=== PATIENT | male | born 1960 | race Caucasian/White ===

== ENCOUNTER 2016-09-16 11:39 | Inpatient (IN) | payer SELFPAY ==
[2016-09-16] VITALS (16 sets, daily range): BP systolic 114–145; BP diastolic 59–89; PULSE 60–154; RESP 18–20; TEMP 98.5–98.6; O2SAT 97–100
[~2016-09-16] VITALS: Ht 182.9 cm; Wt 77.9 kg
[~2016-09-16 11:39] MED LIST: ECASA PO; METO25 PO
[2016-09-16] MEDS ORDERED: SODIUM CHLOR 0.9% 1000 ML INJ 1,000 ML IV ONE (11:45)
[2016-09-16] MEDS ORDERED: DILTIAZEM INJ 125 MG in SODIUM CHLORIDE 0.9% INJ 100 ML IV SCH ×2 (11:45→14:00)
[2016-09-16] MEDS ORDERED: SODIUM CHLORID 0.9% 500 ML INJ 500 ML IV ONE (11:45)
[2016-09-16] MEDS ORDERED: SODIUM CHLORIDE 0.9% FLUSH 10 ML FLUSH IVF PRN ×2 (11:45)
[2016-09-16] MEDS ORDERED: DILTIAZEM HCL 25 MG/5 ML VIAL IV PUSH ONE (11:45)
[2016-09-16] MEDS ORDERED: DILTIAZEM HCL 25 MG/5 ML VIAL ONE (11:46)
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
[2016-09-16 12:38] LABS: AUTOMATED NEUTROPHIL # 5.9 TH/MM3 (1.8-7.7); BASOPHIL # 0.1 TH/MM3 (0-0.2); BASOPHIL % 0.9 % (0.0-2.0); EOSINOPHIL # 0.1 TH/MM3 (0-0.4); EOSINOPHIL % 1.5 % (0.0-4.0); HEMATOCRIT 45.8 % (39.0-51.0); HEMO FLAGS DIFF FINAL; LYMPH % 26.1 % (9.0-44.0); LYMPHOCYTE # 2.3 TH/MM3 (1.0-4.8); MEAN CELL VOLUME 103.6 FL (80.0-100.0); MEAN CORPUSCULAR HEMOGLOBIN 35.1 PG (27.0-34.0); MEAN CORPUSCULAR HGB CONC 33.9 % (32.0-36.0); MONO % 5.3 % (0.0-8.0); NEUT % 66.2 % (16.0-70.0); PLATELET COUNT 284 TH/MM3 (150-450); RED BLOOD COUNT 4.42 MIL/MM3 (4.50-5.90); RED CELL DISTRIBUTION WIDTH 13.3 % (11.6-17.2); WHITE BLOOD COUNT 8.9 TH/MM3 (4.0-11.0)
[2016-09-16 12:41] LABS: APTT (PATIENT) 27.3 SEC (24.3-30.1); INTERNATIONAL NORMALIZED RATIO 0.9 RATIO; PROTHROMBIN TIME - PATIENT 10.2 SEC (9.8-11.6)
[2016-09-16 13:02] LABS: ALT (GPT) 30 U/L (12-78); ANION GAP 16 MEQ/L (5-15); AST (GOT) 33 U/L (15-37); BICARBONATE 20.8 MEQ/L (21.0-32.0); BLOOD UREA NITROGEN 10 MG/DL (7-18); CHLORIDE 109 MEQ/L (98-107); GLOMERULAR FILTRATION RATE 60 ML/MIN (>89); MAGNESIUM 2.1 MG/DL (1.5-2.5); POTASSIUM 3.8 MEQ/L (3.5-5.1); SODIUM (NA) 146 MEQ/L (136-145)
[2016-09-16 13:07] LABS: ALKALINE PHOSPHATASE 48 U/L (45-117); TOTAL BILIRUBIN ADULT 0.5 MG/DL (0.2-1.0)
[2016-09-16 13:08] LABS: CREATINE KINASE 79 U/L (39-308)
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
[2016-09-16] MEDS ORDERED: SODIUM CHLORIDE 0.9% FLUSH 10 ML FLUSH IV FLUSH PRN ×3 (14:00)
[2016-09-16] MEDS ORDERED: NALOXONE HCL 0.4 MG/ML AMP IV PRN (14:00)
[2016-09-16] MEDS ORDERED: ACETAMINOPHEN 325 MG TAB PO PRN (14:00)
[2016-09-16] MEDS ORDERED: BISACODYL 10 MG SUPP RECTAL PRN (14:00)
[2016-09-16] MEDS: ASPIRIN 325 MG TAB PO SCH (14:00)
[2016-09-16] MEDS ORDERED: LORazepam 1 MG TAB PO PRN (14:00)
[2016-09-16] MEDS ORDERED: FLUMAZENIL 0.5 MG/5 ML VIAL IV PUSH PRN (14:00)
[2016-09-16] MEDS ORDERED: LORazepam 2 MG TAB PO PRN (14:00)
[2016-09-16] MEDS ORDERED: ONDANSETRON HCL 4 MG/2 ML VIAL IV PRN (14:00)
[2016-09-16] MEDS ORDERED: SENNOSIDES 8.6 MG TAB PO PRN (14:00)
[2016-09-16] MEDS ORDERED: ZOLPIDEM TARTRATE 5 MG TAB PO PRN (14:00)
[2016-09-16] MEDS: SODIUM CHLORIDE 0.9% FLUSH 10 ML FLUSH IV FLUSH SCH ×2 (14:00→21:15)
[2016-09-16] MEDS ORDERED: LACTULOSE SYRUP 20 GM/30 ML CUP PO PRN (14:00)
[2016-09-16] MEDS ORDERED: PROCHLORPERAZINE 25 MG SUPP RECTAL PRN (14:00)
[2016-09-16] MEDS ORDERED: MAGNESIUM HYDROXIDE SUSP 30 ML CUP PO PRN (14:00)
[2016-09-16] MEDS ORDERED: cloNIDine HCL 0.1 MG TAB PO PRN (14:00)
[2016-09-16] MEDS ORDERED: LORazepam 2 MG/ML VIAL IV PUSH PRN ×4 (14:00)
[2016-09-16] MEDS: THIAMINE HCL 100 MG TAB PO SCH (14:33)
[2016-09-16] MEDS: ENOXAPARIN SODIUM 80 MG/0.8 ML SYRINGE SQ SCH (14:34)
[2016-09-16] MEDS: FOLIC ACID 1 MG TAB PO SCH (14:34)
[2016-09-16] MEDS: MULTIVITAMINS/MINERALS THERAPEUTIC TAB PO SCH (15:13)
[2016-09-16] MEDS: PANTOPRAZOLE SOD 40 MG DELAYED RELEASE TAB PO SCH (15:14)
[2016-09-16] MEDS: NICOTINE 14 MG/24 HR PATCH T-DERMAL SCH (15:14)
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
--- NOTE | 2016-09-16 16:25 | RADRPT ---
EXAM DATE/TIME: 09/16/2016 16:15 [facility] COMPARISON: No previous studies available for comparison. INDICATIONS : Syncope RADIATION DOSE: 36.43 CTDIvol (mGy) MEDICAL HISTORY : Cardiovascular disease. Hepatitis. ETOH.TBI SURGICAL HISTORY : None. ENCOUNTER: Initial ACUITY: 1 day PAIN SCALE: 0/10 LOCATION: cranial TECHNIQUE: Multiple contiguous axial images were obtained of the head. Using automated exposure control and adj ustment of the mA and/or kV according to patient size, radiation dose was kept as low as reasonably a chievable to obtain optimal diagnostic quality images. DICOM format image data is available electro nically for review and comparison. FINDINGS: CEREBRUM: The ventricles are normal for age. No evidence of midline shift, mass lesion, hemorrhage or acute in farction. No extra-axial fluid collections are seen. POSTERIOR FOSSA: The cerebellum and brainstem are intact. The 4th ventricle is midline. The cerebellopontine angle i s unremarkable. EXTRACRANIAL: The visualized portion of the orbits is intact. SKULL: The calvaria is intact. No evidence of skull fracture. CONCLUSION: 1. No acute findings. No significant change from January 2015. Demarcus Britt MD on September 16, 2016 at 16:22 Board Certified Radiologist. This report was verified electronically.
--- NOTE | 2016-09-16 17:21 | RADRPT ---
EXAM DATE/TIME: 09/16/2016 16:44 [facility] COMPARISON: No previous studies available for comparison. INDICATIONS : Syncope. MEDICAL HISTORY : A-fib. Syncope. Palpitations. Migraine. SURGICAL HISTORY : Brain surgery 1980. ENCOUNTER: Initial ACUITY: 1 day PAIN SCORE: 0/10 LOCATION: Bilateral neck PEAK SYSTOLIC VELOCITIES (cm/sec): ICA/CCA RATIO: Right: 1.1 Left: 0.9 ICA: Right: 89 Left: 85 CCA: Right: 83 Left: 93 ECA: Right: 120 Left: 99 VERTEBRAL: Right: 48 antegrade Left: 56 antegrade Elevated flow velocities and ICA/CCA ratios have been found to correlate with increased degrees of vessel stenosis, calculated as percentage of diameter relative to a normal segment of distal ICA/CCA FINDINGS: RIGHT CAROTID: No significant stenosis is visualized. The waveforms are within normal limits. LEFT CAROTID: No significant stenosis is visualized. The waveforms are within normal limits. VERTEBRAL ARTERIES: Antegrade flow is seen in both vertebral arteries. MISCELLANEOUS: None. CONCLUSION: 1. Mild to moderate visible plaque formation predominantly around the carotid bifurcations. No hemody namically significant stenosis identified. Vertebral artery flow is antegrade bilaterally. Demarcus Britt MD on September 16, 2016 at 17:18 Board Certified Radiologist. This report was verified electronically.
--- NOTE | 2016-09-16 17:53 | EKG ---
Date Performed: 09/16/2016 Time Performed: 11:44:43 PTAGE: 56 years EKG: ATRIAL FLUTTER/TACHYCARDIA WITH RAPID VENTRICULAR RESPONSE MARKED LEFT AXIS DEVIATION SEPTA L MYOCARDIAL INFARCTION ST DEPRESSION, CONSIDER SUBENDOCARDIAL INJURY Compared to previous tracing, t here is now an unusual atrial flutter with 2:1 heart block and increased heart rate. ABNORMAL ECG PREVIOUS TRACING : 11/12/2015 06.24 DOCTOR: Silvio Parra Interpretating Date/Time 09/16/2016 17:52:08
[2016-09-16] MEDS ORDERED: SODIUM CHLORIDE 0.9% FLUSH 10 ML FLUSH IV FLUSH SCH (21:00)
[2016-09-16] MEDS: DOCUSATE SODIUM 50 MG/SENNA 8.6 MG TAB PO SCH (21:00)
[2016-09-16] MEDS: METOPROLOL TARTRATE 50 MG TAB PO SCH (21:15)
[2016-09-17] VITALS (13 sets, daily range): BP systolic 121–152; BP diastolic 67–77; PULSE 43–75; RESP 18–20; TEMP 97.7–98.5; O2SAT 96–99
[2016-09-17 02:03] LABS: AUTOMATED NEUTROPHIL # 4.4 TH/MM3 (1.8-7.7); BASOPHIL # 0.1 TH/MM3 (0-0.2); BASOPHIL % 0.7 % (0.0-2.0); EOSINOPHIL # 0.3 TH/MM3 (0-0.4); EOSINOPHIL % 3.5 % (0.0-4.0); HEMATOCRIT 42.8 % (39.0-51.0); HEMO FLAGS DIFF FINAL; LYMPH % 30.7 % (9.0-44.0); LYMPHOCYTE # 2.4 TH/MM3 (1.0-4.8); MEAN CELL VOLUME 103.7 FL (80.0-100.0); MEAN CORPUSCULAR HEMOGLOBIN 34.6 PG (27.0-34.0); MEAN CORPUSCULAR HGB CONC 33.4 % (32.0-36.0); MONO % 8.1 % (0.0-8.0); PLATELET COUNT 227 TH/MM3 (150-450); RED BLOOD COUNT 4.13 MIL/MM3 (4.50-5.90); RED CELL DISTRIBUTION WIDTH 13.5 % (11.6-17.2); WHITE BLOOD COUNT 7.7 TH/MM3 (4.0-11.0)
[2016-09-17 02:17] LABS: ANION GAP 6 MEQ/L (5-15); AST (GOT) 23 U/L (15-37); BICARBONATE 28.6 MEQ/L (21.0-32.0); BLOOD UREA NITROGEN 14 MG/DL (7-18); CHLORIDE 107 MEQ/L (98-107); GLOMERULAR FILTRATION RATE 68 ML/MIN (>89); MAGNESIUM 2.4 MG/DL (1.5-2.5); SODIUM (NA) 142 MEQ/L (136-145)
[2016-09-17 02:25] LABS: ALKALINE PHOSPHATASE 47 U/L (45-117); ALT (GPT) 25 U/L (12-78); FREE T4 0.79 NG/DL (0.76-1.46); TOTAL BILIRUBIN ADULT 0.5 MG/DL (0.2-1.0)
[2016-09-17 02:33] LABS: CREATINE KINASE 71 U/L (39-308)
[2016-09-17] MEDS: ENOXAPARIN SODIUM 80 MG/0.8 ML SYRINGE SQ SCH ×2 (05:02→13:42)
[2016-09-17] MEDS: PANTOPRAZOLE SOD 40 MG DELAYED RELEASE TAB PO SCH (08:54)
[2016-09-17] MEDS: MULTIVITAMINS/MINERALS THERAPEUTIC TAB PO SCH (08:54)
[2016-09-17] MEDS: REMOVE OLD PATCH T-DERMAL SCH (08:56)
[2016-09-17] MEDS: NICOTINE 14 MG/24 HR PATCH T-DERMAL SCH (08:56)
[2016-09-17] MEDS: ASPIRIN 325 MG TAB PO SCH (08:57)
[2016-09-17] MEDS: FOLIC ACID 1 MG TAB PO SCH (08:57)
[2016-09-17] MEDS: SODIUM CHLORIDE 0.9% FLUSH 10 ML FLUSH IV FLUSH SCH ×2 (08:57→20:54)
[2016-09-17] MEDS: DOCUSATE SODIUM 50 MG/SENNA 8.6 MG TAB PO SCH ×2 (08:58→20:53)
[2016-09-17] MEDS: METOPROLOL TARTRATE 50 MG TAB PO SCH ×2 (09:00→20:54)
[2016-09-17] MEDS: THIAMINE HCL 100 MG TAB PO SCH (09:07)
[2016-09-17] MEDS ORDERED: PNEUMOCOCCAL POLYVALENT INJ 25 MCG/0.5 ML SYR IM ONE (10:00)
[2016-09-17] MEDS ORDERED: INFLUENZA VIRUS VACCINE (QUADRIVALENT) 0.5 ML SYR IM ONE (10:00)
--- NOTE | 2016-09-17 10:22 | PD.CARD.PN ---
Subjective Subjective Remarks no complaints, currently sinus sussy Objective Medications Administered Medications Medications (Trade) Dose Ordered Sig/Kee Route PRN Reason Start Time Stop Time Status Last Admin Dose Admin Metoprolol Tartrate (Lopressor) 50 mg BID PO 09/16/16 21:00 09/16/16 21:15 Enoxaparin Sodium (Lovenox Inj) 80 mg Q12H SQ 09/16/16 15:00 09/17/16 05:02 Aspirin (Aspirin) 325 mg DAILY PO 09/16/16 14:00 09/17/16 08:57 Folic Acid (Folate) 1 mg DAILY PO 09/16/16 14:00 09/21/16 13:59 09/17/16 08:57 Thiamine HCl (Vitamin B1) 100 mg DAILY PO 09/16/16 15:00 09/17/16 09:07 Multivitamins/ Minerals Therapeutic (Theragran M Tab) 1 tab DAILY PO 09/16/16 14:00 09/21/16 13:59 09/17/16 08:54 Pantoprazole Sodium (Protonix) 40 mg DAILY PO 09/16/16 15:00 09/17/16 08:54 Sodium Chloride (NS Flush) 2 ml BID IV FLUSH 09/16/16 14:00 09/17/16 08:57 Nicotine (Habitrol 14 Mg Patch.24 Hr) 1 patch DAILY T-DERMAL 09/16/16 15:00 09/17/16 08:56 Vital Signs / I&O Vital Signs Date Time Temp Pulse Resp B/P Pulse Ox O2 Delivery O2 Flow Rate FiO2 09/17/16 08:00 98.5 43 20 148/75 98 09/17/16 04:00 98.4 46 20 152/74 99 09/17/16 00:00 97.9 49 18 132/67 96 09/16/16 21:00 60 09/16/16 21:00 60 09/16/16 18:45 98.5 64 20 140/71 99 09/16/16 18:00 74 09/16/16 18:00 74 09/16/16 16:26 61 18 145/70 97 Nasal Cannula 2 09/16/16 16:15 61 09/16/16 16:00 75 18 135/74 97 Nasal Cannula 2 09/16/16 15:20 84 18 125/79 97 Nasal Cannula 2 09/16/16 14:36 100 Nasal Cannula 2.00 09/16/16 13:32 89 18 125/79 97 Nasal Cannula 2 09/16/16 12:34 98 18 114/77 97 Nasal Cannula 2 09/16/16 12:05 99 18 116/59 97 Nasal Cannula 2 09/16/16 12:00 99 18 120/81 97 Nasal Cannula 2 09/16/16 11:59 99 18 97 Nasal Cannula 2 09/16/16 11:56 98.6 104 18 135/89 97 09/16/16 11:53 143 20 135/89 98 Nasal Cannula 2 09/16/16 11:53 141 20 135/89 97 Nasal Cannula 2 09/16/16 11:48 98 2 09/16/16 11:48 98 Nasal Cannula 2 09/16/16 11:45 154 I/O 09/16/16 09/16/16 09/16/16 09/17/16 09/17/16 09/17/16 07:00 15:00 23:00 07:00 15:00 23:00 Intake Total 480 ml 360 ml Output Total 600 ml Balance -600 ml 480 ml 360 ml Intake Oral 480 ml 360 ml Output Urine Total 600 ml # Voids 1 3 4 # Bowel Movements 1 0 Physical Exam GENERAL: This is a well-nourished, well-developed patient, in no apparent distress. CARDIOVASCULAR: Regular rate and rhythm without murmurs, gallops, or rubs. RESPIRATORY: Clear to auscultation. Breath sounds equal bilaterally. No wheezes , rales, or rhonchi. GASTROINTESTINAL: Abdomen soft, non-tender, nondistended. Normal active bowel sounds MUSCULOSKELETAL: Extremities without clubbing, cyanosis, or edema. NEURO: Alert & Oriented x4 to person, place, time, situation. Moves all ext x4 Laboratory Laboratory Tests Test 09/16/16 09/16/16 09/17/16 12:01 20:14 01:43 White Blood Count 8.9 TH/MM3 7.7 TH/MM3 Red Blood Count 4.42 MIL/MM3 4.13 MIL/MM3 Hemoglobin 15.5 GM/DL 14.3 GM/DL Hematocrit 45.8 % 42.8 % Mean Corpuscular Volume 103.6 FL 103.7 FL Mean Corpuscular Hemoglobin 35.1 PG 34.6 PG Mean Corpuscular Hemoglobin 33.9 % 33.4 % Concent Red Cell Distribution Width 13.3 % 13.5 % Platelet Count 284 TH/MM3 227 TH/MM3 Mean Platelet Volume 7.4 FL 7.3 FL Neutrophils (%) (Auto) 66.2 % 57.0 % Lymphocytes (%) (Auto) 26.1 % 30.7 % Monocytes (%) (Auto) 5.3 % 8.1 % Eosinophils (%) (Auto) 1.5 % 3.5 % Basophils (%) (Auto) 0.9 % 0.7 % Neutrophils # (Auto) 5.9 TH/MM3 4.4 TH/MM3 Lymphocytes # (Auto) 2.3 TH/MM3 2.4 TH/MM3 Monocytes # (Auto) 0.5 TH/MM3 0.6 TH/MM3 Eosinophils # (Auto) 0.1 TH/MM3 0.3 TH/MM3 Basophils # (Auto) 0.1 TH/MM3 0.1 TH/MM3 CBC Comment DIFF FINAL DIFF FINAL Differential Comment Prothrombin Time 10.2 SEC Prothromb Time International 0.9 RATIO Ratio Activated Partial 27.3 SEC Thromboplast Time Sodium Level 146 MEQ/L 142 MEQ/L Potassium Level 3.8 MEQ/L 4.0 MEQ/L Chloride Level 109 MEQ/L 107 MEQ/L Carbon Dioxide Level 20.8 MEQ/L 28.6 MEQ/L Anion Gap 16 MEQ/L 6 MEQ/L Blood Urea Nitrogen 10 MG/DL 14 MG/DL Creatinine 1.24 MG/DL 1.11 MG/DL Estimat Glomerular Filtration 60 ML/MIN 68 ML/MIN Rate Random Glucose 71 MG/DL 85 MG/DL Calcium Level 8.4 MG/DL 8.1 MG/DL Magnesium Level 2.1 MG/DL 2.4 MG/DL Total Bilirubin 0.5 MG/DL 0.5 MG/DL Aspartate Amino Transf 33 U/L 23 U/L (AST/SGOT) Alanine Aminotransferase 30 U/L 25 U/L (ALT/SGPT) Alkaline Phosphatase 48 U/L 47 U/L Total Creatine Kinase 79 U/L 71 U/L 71 U/L Troponin I LESS THAN 0.02 0.39 NG/ML 0.26 NG/ML NG/ML Total Protein 6.8 GM/DL 6.2 GM/DL Albumin 3.4 GM/DL 2.9 GM/DL Lipase 324 U/L Ethyl Alcohol Level 95 MG/DL Phosphorus Level 2.5 MG/DL Free Thyroxine 0.79 NG/DL Thyroid Stimulating Hormone 1.480 uIU/ML 3rd Gen Imaging Last Impressions Chest X-Ray 09/16/16 1144 Signed Impressions: Service Date/Time: Friday, September 16, 2016 12:03 - CONCLUSION: No acute cardiopulmonary abnormality is identified. Juan Manuel Pinto MD Head CT 09/16/16 0000 Signed Impressions: Service Date/Time: Friday, September 16, 2016 16:15 - CONCLUSION: 1. No acute findings. No significant change from January 2015. Demarcus Britt MD Carotid Artery Ultrasound 09/16/16 0000 Signed Impressions: Service Date/Time: Friday, September 16, 2016 16:44 - CONCLUSION: 1. Mild to moderate visible plaque formation predominantly around the carotid bifurcations. No hemodynamically significant stenosis identified. Vertebral artery flow is antegrade bilaterally. Demarcus Britt MD Assessment and Plan Problem List: (1) Atrial fibrillation with RVR Assessment and Plan: currently on metoprolol/lovenox; 1:1 conduction of aflutter, asked dr. cordova to eval (2) Alcohol abuse with intoxication (3) Cardiomyopathy Assessment and Plan: likely alcoholic/tachycardic; will get a nuc stress Adam Hernandez MD Sep 17, 2016 10:22
--- NOTE | 2016-09-17 12:04 | HHI.PR ---
Subjective Remarks Pt denies any CP/SOB however does admits to palpitations at times. States that his gate is unsteady at times but that is normal for him. Appetite is good. Objective Vitals Vital Signs Date Time Temp Pulse Resp B/P Pulse Ox O2 Delivery O2 Flow Rate FiO2 09/17/16 08:09 47 09/17/16 08:00 98.5 43 20 148/75 98 09/17/16 04:00 98.4 46 20 152/74 99 09/17/16 00:00 97.9 49 18 132/67 96 09/16/16 21:00 60 09/16/16 21:00 60 09/16/16 18:45 98.5 64 20 140/71 99 09/16/16 18:00 74 09/16/16 18:00 74 09/16/16 16:26 61 18 145/70 97 Nasal Cannula 2 09/16/16 16:15 61 09/16/16 16:00 75 18 135/74 97 Nasal Cannula 2 09/16/16 15:20 84 18 125/79 97 Nasal Cannula 2 09/16/16 14:36 100 Nasal Cannula 2.00 09/16/16 13:32 89 18 125/79 97 Nasal Cannula 2 09/16/16 12:34 98 18 114/77 97 Nasal Cannula 2 09/16/16 12:05 99 18 116/59 97 Nasal Cannula 2 09/16/16 12:00 99 18 120/81 97 Nasal Cannula 2 09/16/16 11:59 99 18 97 Nasal Cannula 2 09/16/16 11:56 98.6 104 18 135/89 97 I/O 09/16/16 09/16/16 09/16/16 09/17/16 09/17/16 09/17/16 07:00 15:00 23:00 07:00 15:00 23:00 Intake Total 480 ml 360 ml Output Total 600 ml Balance -600 ml 480 ml 360 ml Intake Oral 480 ml 360 ml Output Urine Total 600 ml # Voids 1 3 4 # Bowel Movements 1 0 Result Diagram: 09/17/16 0143 09/17/16 0143 Imaging Last Impressions Chest X-Ray 09/16/16 1144 Signed Impressions: Service Date/Time: Friday, September 16, 2016 12:03 - CONCLUSION: No acute cardiopulmonary abnormality is identified. Juan Manuel Pinto MD Head CT 09/16/16 0000 Signed Impressions: Service Date/Time: Friday, September 16, 2016 16:15 - CONCLUSION: 1. No acute findings. No significant change from January 2015. Demarcus Britt MD Carotid Artery Ultrasound 09/16/16 0000 Signed Impressions: Service Date/Time: Friday, September 16, 2016 16:44 - CONCLUSION: 1. Mild to moderate visible plaque formation predominantly around the carotid bifurcations. No hemodynamically significant stenosis identified. Vertebral artery flow is antegrade bilaterally. Demarcus Britt MD Objective Remarks GENERAL: This is a well-nourished, well-developed male patient CARDIOVASCULAR: apperas Regular rate and rhythm. No murmur appreciated. RESPIRATORY: Clear to auscultation. Breath sounds equal bilaterally. No wheezes GASTROINTESTINAL: Abdomen soft, non-tender, nondistended. No guarding. MUSCULOSKELETAL: Extremities without edema. NEUROLOGICAL: Awake and alert. Cranial nerves II through XII intact. Motor and sensory grossly within normal limits. Normal speech. Insight and judgment is good, mood and behavior appropriate A/P Problem List: (1) Atrial fibrillation with RVR ICD Code: I48.91 Status: Acute (2) Alcohol abuse with intoxication ICD Code: F10.129 Status: Acute (3) GERD (gastroesophageal reflux disease) ICD Code: K21.9 Status: Acute (4) Tobacco abuse ICD Code: Z72.0 Status: Acute (5) Head injury ICD Code: S09.90XA Status: Acute (6) Syncopal episodes ICD Code: R55 Status: Acute Assessment and Plan (1) Atrial fibrillation with RVR/cardiomyopathy. off Cardizem drip and now on metoprolol 50mg po BID. dose held this morning due to bradycardia. Cardiology following. Nuclear stress test has been ordered, 2D echo ordered. Per cards notes, Dr. Hernandez will discuss case w Dr. Lopes. Pt found to have 1:1 conduction of aflutter (2) Alcohol abuse with intoxication Multivitamin thiamine and folic acid. pt has been counseled to quit. on CIWA withdrawal protocol (3) GERD (gastroesophageal reflux disease) PPI protonix daily (4) Tobacco abuse NicoDerm patch for smoking cessation recommended and encouraged (5) Head injury History of prior head injury in 1980 with brain surgery. Pt tells me that he gets unsteady w his gate. Will have PT evaluate the patient. (6) Syncopal episodes carotid Doppler shows no hemodynamically significant stenosis. ECHO pending. CT brain showed no acute findings Pt currently on therapeutic lovenox. Awaiting final recs from cards Discharge Planning ECHO pending nuclear stress test has been ordered ? consult to Dr. Lopes. Defer to Dr. Hernandez. PT Rosina Ackerman MD Sep 17, 2016 12:04
--- NOTE | 2016-09-17 12:19 | ECHRPT ---
Indication: a fib/flutter CONCLUSIONS The left ventricular systolic function is severely reduced with an estimated ejection fraction in th e range of 30-35%. Moderately dilated left ventricle. Mild concentric left ventricular hypertrophy. The left atrial size is mildly dilated. The right atrial size is fcgo-jo-wdxhlbyuuh dilated. Mild mitral valve regurgitation. Aortic valve sclerosis is present. Diffuse calcification of the aortic valve. No aortic valve regurgitation. No aortic valve stenosis. There is mild tricuspid valve regurgitation. The estimated pulmonary arterial pressure is 18 mmHg. The pulmonary valve is not well visualized. BP: / HR: Rhythm: MEASUREMENTS (Male / Female) Normal Values Technical Quality:Fair 2D ECHO LV Diastolic Diameter PLAX 5.1 cm 4.2 - 5.9 / 3.9 - 5.3 cm LV Systolic Diameter PLAX 4.4 cm IVS Diastolic Thickness 1.2 cm 0.6 - 1.0 / 0.6 - 0.9 cm LVPW Diastolic Thickness 1.1 cm 0.6 - 1.0 / 0.6 - 0.9 cm LV Relative Wall Thickness 0.5 RV Internal Dim ED PLAX 3.7 cm M-MODE Aortic Root Diameter MM 3.5 cm LA Systolic Diameter MM 4.4 cm LA Ao Ratio MM 1.3 AV Cusp Separation MM 2.4 cm DOPPLER Mitral E Point Velocity 60.2 cm/s Mitral A Point Velocity 69.6 cm/s Mitral E to A Ratio 0.9 LV E' Lateral Velocity 8.4 cm/s Mitral E to LV E' Lateral Ratio 7.2 LV E' Septal Velocity 8.7 cm/s Mitral E to LV E' Septal Ratio 6.9 TR Peak Velocity 213.0 cm/s TR Peak Gradient 18.1 mmHg FINDINGS LEFT VENTRICLE The left ventricular systolic function is severely reduced with an estimated ejection fraction in th e range of 30-35%. Moderately dilated left ventricle. Mild concentric left ventricular hypertrophy. RIGHT VENTRICLE Normal right ventricular size and systolic function. LEFT ATRIUM The left atrial size is mildly dilated. RIGHT ATRIUM The right atrial size is oqop-to-cwytrzbamh dilated. ATRIAL SEPTUM Normal atrial septal thickness without atrial level shunting by limited color doppler interrogation. AORTA The aortic root and proximal ascending aorta are normal in size on limited imaging. MITRAL VALVE Structurally normal mitral valve. Mild mitral valve regurgitation. AORTIC VALVE Trileaflet aortic valve. Aortic valve sclerosis is present. Diffuse calcification of the aortic valve. No aortic valve regurgitation. No aortic valve stenosis. TRICUSPID VALVE Structurally normal tricuspid valve. There is mild tricuspid valve regurgitation. The estimated pulmonary arterial pressure is 18 mmHg. PULMONARY VALVE The pulmonary valve is not well visualized. VESSELS The inferior vena cava is normal in size. PERICARDIUM No pericardial effusion. Isauro Singh MD, FACC (Electronically Signed) Final Date:17 September 2016 12:19
--- NOTE | 2016-09-17 16:09 | EKG ---
Date Performed: 09/16/2016 Time Performed: 12:19:02 PTAGE: 56 years EKG: ATRIAL FLUTTER/TACHYCARDIA CONSIDER ANTEROSEPTAL MYOCARDIAL INFARCTION, AGE INDETERMINATE A BNORMAL ECG PREVIOUS TRACING : 09/16/2016 11.44 DOCTOR: Kvng Frost Interpretating Date/Time 09/17/2016 16:08:06
[2016-09-17 16:11] LABS: HEMOGLOBIN A1a 1.4 %; HEMOGLOBIN A1b 0.7 %; HEMOGLOBIN Ao 85.1 %; HEMOGLOBIN F 1.3 %; HEMOGLOBIN LA1C 2.1 %; HEMOGLOBIN P3 3.5 %
[2016-09-18] VITALS (7 sets, daily range): BP systolic 106–133; BP diastolic 59–79; PULSE 45–97; RESP 20; TEMP 97.3–98.7; O2SAT 50–100
[2016-09-18] MEDS: ENOXAPARIN SODIUM 80 MG/0.8 ML SYRINGE SQ SCH ×2 (03:32→14:11)
[2016-09-18] MEDS ORDERED: REGADENOSON INJ 0.4 MG/5 ML SYR ONE (08:58)
[2016-09-18] MEDS: REMOVE OLD PATCH T-DERMAL SCH (09:00)
[2016-09-18] MEDS: PANTOPRAZOLE SOD 40 MG DELAYED RELEASE TAB PO SCH (10:25)
[2016-09-18] MEDS: DOCUSATE SODIUM 50 MG/SENNA 8.6 MG TAB PO SCH ×2 (10:25→21:00)
[2016-09-18] MEDS: ASPIRIN 325 MG TAB PO SCH (10:25)
[2016-09-18] MEDS: MULTIVITAMINS/MINERALS THERAPEUTIC TAB PO SCH (10:26)
[2016-09-18] MEDS: SODIUM CHLORIDE 0.9% FLUSH 10 ML FLUSH IV FLUSH SCH ×2 (10:26→21:00)
[2016-09-18] MEDS: FOLIC ACID 1 MG TAB PO SCH (10:26)
[2016-09-18] MEDS: THIAMINE HCL 100 MG TAB PO SCH (10:26)
[2016-09-18] MEDS: METOPROLOL TARTRATE 50 MG TAB PO SCH ×2 (10:26→21:45)
[2016-09-18] MEDS: NICOTINE 14 MG/24 HR PATCH T-DERMAL SCH (10:27)
--- NOTE | 2016-09-18 10:36 | RADRPT ---
EXAM DATE/TIME: 09/17/2016 14:46 [facility] COMPARISON: No previous studies available for comparison. INDICATIONS : Mid chest pain for one day with shortness of breath. Atrial fibrillation. DOSE: 32.8 mCi Tc99m Myoview at stress. 30 mCi Tc99m Myoview at rest. 0.4 mg Lexiscan STRESS SYMPTOMS: Dyspnea. EJECTION FRACTION: 37% MEDICAL HISTORY : Cardiomyopathy. SURGICAL HISTORY : None. ENCOUNTER: Initial ACUITY: 1 day PAIN SCALE: 2/10 LOCATION: Midsternal chest TECHNIQUE: The patient underwent pharmacologic stress with infusion of prescribed dose. Continuous ECG tracing was monitored during stress. Gated SPECT imaging was performed after stress and conventional SPECT i maging was performed at rest. The examination was performed on a SPECT/CT scanner, both attenuation and non-corrected datasets were reviewed. FINDINGS: DISTRIBUTION: The maximum perfused segment at stress is in the anterior wall. PERFUSION STUDY: The pattern of perfusion at stress is within normal limits. GATED STUDY: Moderate left ventricular chamber dilatation with global mild hypokinesis CONCLUSION: Moderate LV dysfunction. No evidence of ischemia RISK CATEGORY: Intermediate (1-3% Annual Mortality Rate) Juan Manuel Washington MD on September 18, 2016 at 10:32 Board Certified Radiologist. This report was verified electronically.
--- NOTE | 2016-09-18 23:24 | HHI.PR ---
Subjective Remarks Patient seen this morning around 11 AM. Says he feels well. Denies any chest pain. Objective Vital Signs Date Time Temp Pulse Resp B/P Pulse Ox O2 Delivery O2 Flow Rate FiO2 09/18/16 20:18 Room Air 09/18/16 20:00 98.7 70 20 106/59 100 09/18/16 16:00 97.8 68 20 133/66 98 09/18/16 16:00 Room Air 09/18/16 13:03 97 21 09/18/16 12:00 97.3 97 20 130/73 50 09/18/16 12:00 Room Air 09/18/16 08:12 53 09/18/16 08:00 Room Air 09/18/16 08:00 97.9 45 20 132/79 98 I/O 09/17/16 09/17/16 09/17/16 09/18/16 09/18/16 09/18/16 06:59 14:59 22:59 06:59 14:59 22:59 Intake Total 360 ml 482 ml 720 ml 0 ml 604 ml Output Total 3 ml 0 ml 600 ml Balance 360 ml 479 ml 720 ml 0 ml 4 ml Intake Oral 360 ml 480 ml 720 ml 0 ml 600 ml IV Total 2 ml 4 ml Output Urine Total 3 ml 0 ml 600 ml # Voids 4 1 2 # Bowel Movements 0 1 0 1 Result Diagram: 09/17/1614209/17/16142 Objective Remarks GENERAL: patient sitting up in bed. Appears comfortable. SKIN: Warm and dry. HEAD: Normocephalic. EYES: No scleral icterus. No injection or drainage. NECK: Supple, trachea midline. No JVD. CARDIOVASCULAR: Regular rate and rhythm without murmurs, gallops, or rubs. RESPIRATORY: Breath sounds equal bilaterally. No accessory muscle use. GASTROINTESTINAL: Abdomen soft, non-tender, nondistended. MUSCULOSKELETAL: No cyanosis, or edema. BACK: Nontender without obvious deformity. No CVA tenderness. A/P Assessment and Plan 09/18/16 Intermediate myocardial perfusion scan. Evaluation by electrophysiology pending. Appreciate assistance. //Atrial fibrillation with RVR/cardiomyopathy. off Cardizem drip and now on metoprolol 50mg po BID. - Cardiology following. -Echocardiogram ejection fraction 30-35%. -Nuclear stress intermediate risk -Pending evaluation by Dr. Lopes. //Alcohol abuse with intoxication Multivitamin thiamine and folic acid. pt has been counseled to quit. -cont on CIWA withdrawal protocol //GERD (gastroesophageal reflux disease) -cont PPI protonix daily //Tobacco abuse -cont NicoDerm patch for smoking cessation recommended and encouraged //Head injury History of prior head injury in 1980 with brain surgery. Pt tells me that he gets unsteady w his gate. -PT ff //Syncopal episodes carotid Doppler shows no hemodynamically significant stenosis. ECHO ef 30-35%. CT brain showed no acute findings //Prophy: Pt currently on therapeutic lovenox. Awaiting final recs from cards Discharge Planning When cleared by cardiology. Brandon Mg MD Sep 18, 2016 23:23
[2016-09-19] VITALS (10 sets, daily range): BP systolic 94–117; BP diastolic 50–62; PULSE 45–98; RESP 18–20; TEMP 98.1–99.1; O2SAT 95–99
[2016-09-19] MEDS: ENOXAPARIN SODIUM 80 MG/0.8 ML SYRINGE SQ SCH ×2 (04:44→15:33)
[2016-09-19] MEDS: FOLIC ACID 1 MG TAB PO SCH (09:52)
[2016-09-19] MEDS: MULTIVITAMINS/MINERALS THERAPEUTIC TAB PO SCH (09:52)
[2016-09-19] MEDS: PANTOPRAZOLE SOD 40 MG DELAYED RELEASE TAB PO SCH (09:52)
[2016-09-19] MEDS: ASPIRIN 325 MG TAB PO SCH (09:52)
[2016-09-19] MEDS: THIAMINE HCL 100 MG TAB PO SCH (09:53)
[2016-09-19] MEDS: NICOTINE 14 MG/24 HR PATCH T-DERMAL SCH (09:53)
[2016-09-19] MEDS: METOPROLOL TARTRATE 50 MG TAB PO SCH ×2 (09:53→20:18)
[2016-09-19] MEDS: DOCUSATE SODIUM 50 MG/SENNA 8.6 MG TAB PO SCH ×2 (09:53→20:18)
[2016-09-19] MEDS: SODIUM CHLORIDE 0.9% FLUSH 10 ML FLUSH IV FLUSH SCH ×2 (09:56→20:14)
--- NOTE | 2016-09-19 20:43 | HHI.PR ---
Subjective Remarks Patient seen this morning. Says he occasionally gets palpitations, however denies any chest pain. Discussed with nurse. Objective Vital Signs Date Time Temp Pulse Resp B/P Pulse Ox O2 Delivery O2 Flow Rate FiO2 09/19/16 20:24 96 21 09/19/16 20:19 Room Air 09/19/16 16:00 98.7 98 18 111/57 98 09/19/16 12:00 98.4 45 18 110/54 98 09/19/16 11:46 99 Nasal Cannula 2.00 09/19/16 08:00 98.1 61 18 94/52 95 09/19/16 08:00 62 09/19/16 08:00 96 Room Air 21 09/19/16 08:00 63 09/19/16 06:00 98.4 70 20 108/56 96 09/19/16 00:00 98.8 71 20 103/50 97 I/O 09/18/16 09/18/16 09/18/16 09/19/16 09/19/16 09/19/16 07:00 15:00 23:00 07:00 15:00 23:00 Intake Total 0 ml 604 ml 240 ml 720 ml 240 ml Output Total 600 ml 0 ml 900 ml Balance 0 ml 4 ml 240 ml 720 ml -660 ml Intake Oral 0 ml 600 ml 240 ml 720 ml 240 ml IV Total 4 ml Output Urine Total 600 ml 0 ml 900 ml # Voids 2 2 # Bowel Movements 1 0 Result Diagram: 09/17/16 0143 09/17/16 0143 Objective Remarks GENERAL: patient sitting up in bed. Appears comfortable.no appreciable change on exam. SKIN: Warm and dry. HEAD: Normocephalic. EYES: No scleral icterus. No injection or drainage. NECK: Supple, trachea midline. No JVD. CARDIOVASCULAR: Regular rate and rhythm without murmurs, gallops, or rubs. RESPIRATORY: Breath sounds equal bilaterally. No accessory muscle use. GASTROINTESTINAL: Abdomen soft, non-tender, nondistended. MUSCULOSKELETAL: No cyanosis, or edema. BACK: Nontender without obvious deformity. No CVA tenderness. A/P Assessment and Plan 09/19/16 -Patient has intermediate risk perfusion scan -Placed consult for [employer] follow-up recommendations. //Atrial fibrillation with RVR/cardiomyopathy. off Cardizem drip and now on metoprolol 50mg po BID. - Cardiology following. -Echocardiogram ejection fraction 30-35%. -Nuclear stress intermediate risk -Pending evaluation by Dr. Lopes. //Alcohol abuse with intoxication Multivitamin thiamine and folic acid. pt has been counseled to quit. -cont on CIWA withdrawal protocol //GERD (gastroesophageal reflux disease) -cont PPI protonix daily //Tobacco abuse -cont NicoDerm patch for smoking cessation recommended and encouraged //Head injury History of prior head injury in 1980 with brain surgery. Pt tells me that he gets unsteady w his gate. -PT ff //Syncopal episodes carotid Doppler shows no hemodynamically significant stenosis. ECHO ef 30-35%. CT brain showed no acute findings //Prophy: Pt currently on therapeutic lovenox. Awaiting final recs from cards Discharge Planning When cleared by cardiology. Brandon Mg MD Sep 19, 2016 20:43
[2016-09-20] MEDS: ENOXAPARIN SODIUM 80 MG/0.8 ML SYRINGE SQ SCH (03:00)
[2016-09-20 05:00] VITALS: BP 105/60; PULSE 53; RESP 16; TEMP 99.3; O2SAT 98
[2016-09-20 08:00] VITALS: BP 94/67; PULSE 61; RESP 18; TEMP 98.3; O2SAT 97
[2016-09-20] MEDS: PANTOPRAZOLE SOD 40 MG DELAYED RELEASE TAB PO SCH (08:41)
[2016-09-20] MEDS: METOPROLOL TARTRATE 50 MG TAB PO SCH (08:42)
[2016-09-20] MEDS: DOCUSATE SODIUM 50 MG/SENNA 8.6 MG TAB PO SCH (08:42)
[2016-09-20] MEDS: MULTIVITAMINS/MINERALS THERAPEUTIC TAB PO SCH (08:42)
[2016-09-20] MEDS: FOLIC ACID 1 MG TAB PO SCH (08:42)
[2016-09-20] MEDS: THIAMINE HCL 100 MG TAB PO SCH (08:42)
[2016-09-20] MEDS: ASPIRIN 325 MG TAB PO SCH (08:42)
[2016-09-20] MEDS: REMOVE OLD PATCH T-DERMAL SCH (08:43)
[2016-09-20] MEDS: SODIUM CHLORIDE 0.9% FLUSH 10 ML FLUSH IV FLUSH SCH (08:43)
[2016-09-20] MEDS: NICOTINE 14 MG/24 HR PATCH T-DERMAL SCH (08:44)
[2016-09-20 08:50] VITALS: PULSE 57
[2016-09-20 12:00] VITALS: BP 119/59; PULSE 45; RESP 18; TEMP 97.6; O2SAT 98
[2016-09-20 12:53] VITALS: O2SAT 97
[2016-09-20] MEDS ORDERED: GNP100TA3 PO (15:00)
[2016-09-20] MEDS ORDERED: METO-309 PO (15:00)
--- NOTE | 2016-09-20 15:01 | HHI.PR ---
Subjective Remarks Feeling fine Objective Vital Signs Date Time Temp Pulse Resp B/P Pulse Ox O2 Delivery O2 Flow Rate FiO2 09/20/16 12:53 97 21 09/20/16 12:00 97.6 45 18 119/59 98 09/20/16 08:50 Room Air 09/20/16 08:50 57 09/20/16 08:00 98.3 61 18 94/67 97 09/20/16 05:00 99.3 53 16 105/60 98 09/19/16 23:34 99.1 54 18 117/62 98 09/19/16 20:24 96 21 09/19/16 20:19 Room Air 09/19/16 20:10 98.3 51 18 102/57 98 09/19/16 20:00 52 09/19/16 16:00 98.7 98 18 111/57 98 I/O 09/19/16 09/19/16 09/19/16 09/20/16 09/20/16 09/20/16 07:00 15:00 23:00 07:00 15:00 23:00 Intake Total 720 ml 720 ml 240 ml Output Total 900 ml Balance 720 ml -180 ml 240 ml Intake Oral 720 ml 720 ml 240 ml Output Urine Total 900 ml # Voids 2 3 3 # Bowel Movements 0 0 Result Diagram: 09/17/1614209/17/16 014 Imaging Alert, fully oriented Lungs: ventilated Heart: s1, S2 regular, no gallop Abdomen: soft, no mass Ext: no edema Current Medications Medications (Trade) Dose Ordered Sig/Kee Route Start Time Stop Time Status Last Admin (Lopressor) 50 mg BID PO 09/16/16 21:00 09/20/16 08:42 (Lovenox Inj) 80 mg Q12H SQ 09/16/16 15:00 09/20/16 03:00 Aspirin 325 mg 325 mg DAILY PO 09/16/16 14:00 09/20/16 08:42 (Cardizem Inj/NS Inj) 125 ml @ 0 mls/hr TITRATE IV 09/16/16 14:00 (Folate) 1 mg DAILY PO 09/16/16 14:00 09/21/16 13:59 09/20/16 08:42 (Vitamin B1) 100 mg DAILY PO 09/16/16 15:00 09/20/16 08:42 (Theragran M Tab) 1 tab DAILY PO 09/16/16 14:00 09/21/16 13:59 09/20/16 08:42 (Zofran Inj) 4 mg Q6H PRN IV 09/16/16 14:00 (Protonix) 40 mg DAILY PO 09/16/16 15:00 09/20/16 08:41 (Catapres) 0.1 mg Q6H PRN PO 09/16/16 14:00 (Romazicon Inj) 0.2 mg Q1M PRN IV PUSH 09/16/16 14:00 (Ativan) 1 mg Q4H PRN PO 09/16/16 14:00 (Ativan Inj) 1 mg Q4H PRN IV PUSH 09/16/16 14:00 (Ativan) 2 mg Q2H PRN PO 09/16/16 14:00 (Ativan Inj) 2 mg Q2H PRN IV PUSH 09/16/16 14:00 (Ativan Inj) 2 mg Q1H PRN IV PUSH 09/16/16 14:00 (Ativan Inj) 2 mg Q15M PRN IV PUSH 09/16/16 14:00 (NS Flush) 2 ml UNSCH PRN IV FLUSH 09/16/16 14:00 (NS Flush) 2 ml BID IV FLUSH 09/16/16 14:00 09/20/16 08:43 (Tylenol) 650 mg Q4H PRN PO 09/16/16 14:00 (Compazine Supp) 25 mg Q12H PRN RECTAL 09/16/16 14:00 (Ambien) 5 mg HS PRN PO 09/16/16 14:00 (Narcan Inj) 0.4 mg UNSCH PRN IV 09/16/16 14:00 (Hailey-Colace) 1 tab BID PO 09/16/16 21:00 09/20/16 08:42 (Milk Of Magnesia Liq) 30 ml Q12H PRN PO 09/16/16 14:00 (Senokot) 17.2 mg Q12H PRN PO 09/16/16 14:00 (Dulcolax Supp) 10 mg DAILY PRN RECTAL 09/16/16 14:00 (Lactulose Liq) 30 ml DAILY PRN PO 09/16/16 14:00 (Habitrol 14 Mg Patch.24 Hr) 1 patch DAILY T-DERMAL 09/16/16 15:00 09/19/16 09:53 Miscellaneous Information 1 DAILY T-DERMAL 09/17/16 09:00 09/18/16 09:00 Assessment and Plan Problem List: (1) Atrial fibrillation with RVR Status: Acute Plan: In sinus rhythm. Will need to be anticoagulated before ablation can be DH Case discussed with patient as well as Dr Yip. Follow up as OP (2) Syncopal episodes Status: Acute Plan: No new episode reported Brooks Lopes MD Sep 20, 2016 15:01
[2016-09-20] MEDS ORDERED: APIX5TAB PO (16:24)
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
--- NOTE | 2016-09-20 16:28 | MB ---
cc: CACHORRO PERDOMO MD, HANSCY M.D. DATE OF CONSULTATION: 09/20/2016 DATE OF : 07/15/1928 REASON FOR CONSULTATION: Atrial fibrillation Biventricular response. HISTORY OF PRESENT ILLNESS: Mr. Woods is a 56 year-old gentleman with history of chronic smoking, drinking, admits on 07/13, atrial fibrillation for ventricular response and near syncope. Heart rate was close to 300 beats per minute. The patient subsequently converted into sinus rhythm during hospitalization. I was consulted for evaluation and management. The chart was reviewed. The patient was evaluated. ALLERGIES None. SOCIAL HISTORY The patient used to smoke close to a pack of cigarettes a day. FAMILY HISTORY Noncontributory to his current medical condition. MEDICATIONS Currently the gentleman is on 1. Cardizem. 2. Aspirin. 3. Lovenox. 4. Folic acid. 5. Lorazepam. 6. Thiamine. 7. Metoprolol. REVIEW OF SYSTEMS The patient refers no chest pains discomfort. No palpitation. No fever. PHYSICAL EXAMINATION: IN GENERAL: Physical exam, fully oriented. VITAL SIGNS: Blood pressure 102/57. Pulse 51, respiratory 18 LUNGS: Ventilated. CARDIOVASCULAR SYSTEM: S1-S2, no gallop. ABDOMEN: Soft. No mass. No bruits. EXTREMITIES: The extremities with no edema. RADIOLOGIC: Electrocardiogram on hospitalization showed a rapid heart rate atrial fibrillation versus atrial flutter. LABORATORY DATA Hemoglobin 14.3 white blood cell 7.7, potassium 4.0, creatinine is 1.1. ASSESSMENT AND RECOMMENDATIONS Mr. Lees currently stable. Troponin increased to 0.26. Most likely due to tachyarrhythmia. Nuclear stress study indicated no active ischemia. He has no chest pain. He refer on and off tachyarrhythmia. He was placed on metoprolol. Apparently gentleman was having a lot of those episodes. He will need to be on anticoagulation and then after 3 weeks of blood thinner we will admitted for atrial flutter and atrial fibrillation ablation. The risks, the nature and the benefit of the procedure are clearly stated to him. Also the gentleman understands to decrease the risks of stroke. We need to anticoagulate him first. The gentleman can use Eliquis 5 mg twice a day. I will moderate monitor in the morning. If stable, he will be discharged home. MD Zuleyma Mckeon /2:52 PM /3:41 PM
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
[2016-09-20] MEDS ORDERED: APIXABAN 5 MG TABLET PO SCH (21:00)
== END 2016-09-20 17:45 | disposition home or self-care (01) | DRG 310 ==
LOC: NEPE 11:39 → NEDH 13:46 → N04B 17:35
PROVIDERS: ADMIT Internal Medicine; ATTEND Internal Medicine
DX: I48.0 Paroxysmal atrial fibrillation (principal); I42.9 Cardiomyopathy, unspecified; I48.92 Unspecified atrial flutter; F17.210 Nicotine dependence, cigarettes, uncomplicated; Y90.4 Blood alcohol level of 80-99 mg/100 ml; K21.9 Gastro-esophageal reflux disease without esophagitis; F10.229 Alcohol dependence with intoxication, unspecified; Z91.19 Patient's noncompliance with other medical treatment and regimen
CPT/HCPCS: 70450; 71010; 78452; 80053; 80307; 82550; 82948; 83036; 83690; 83735; 84100; 84439; 84443; 84484; 85025; 85610; 85730; 90732; 93005; 93017; 93306; 93880; 96365; 96366; 96375; A9502; J1650; J2785; J7030; J7040

== ENCOUNTER 2016-09-26 07:07 | Emergency (ER) | payer SELFPAY ==
[~2016-09-26] VITALS: Ht 182.9 cm; Wt 76.0 kg
[~2016-09-26 07:07] MED LIST changes: +APIX5TAB PO; +GNP100TA3 PO; +METO-309 PO; -METO25 PO
[2016-09-26 07:15] VITALS: BP 120/61; PULSE 75; RESP 16; TEMP 98.6; O2SAT 98
[2016-09-26] MEDS ORDERED: ASPI325T33 PO (07:26)
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
[2016-09-26 07:46] VITALS: O2SAT 96
[2016-09-26 07:47] LABS: AUTOMATED NEUTROPHIL # 6.2 TH/MM3 (1.8-7.7); BASOPHIL # 0.1 TH/MM3 (0-0.2); EOSINOPHIL # 0.2 TH/MM3 (0-0.4); EOSINOPHIL % 2.1 % (0.0-4.0); HEMATOCRIT 43.5 % (39.0-51.0); HEMO FLAGS DIFF FINAL; LYMPH % 23.9 % (9.0-44.0); LYMPHOCYTE # 2.3 TH/MM3 (1.0-4.8); MEAN CELL VOLUME 101.7 FL (80.0-100.0); MEAN CORPUSCULAR HEMOGLOBIN 33.9 PG (27.0-34.0); MEAN CORPUSCULAR HGB CONC 33.3 % (32.0-36.0); MONO % 8.1 % (0.0-8.0); NEUT % 64.9 % (16.0-70.0); PLATELET COUNT 373 TH/MM3 (150-450); RED BLOOD COUNT 4.27 MIL/MM3 (4.50-5.90); RED CELL DISTRIBUTION WIDTH 12.8 % (11.6-17.2); WHITE BLOOD COUNT 9.6 TH/MM3 (4.0-11.0)
[2016-09-26 07:55] LABS: POTASSIUM 4.2 MEQ/L (3.5-5.1)
[2016-09-26 07:59] LABS: APTT (PATIENT) 28.5 SEC (24.3-30.1); BICARBONATE 27.7 MEQ/L (21.0-32.0); PROTHROMBIN TIME - PATIENT 10.7 SEC (9.8-11.6)
[2016-09-26] MEDS ORDERED: IOHEXOL 350 MG/ML 10 ML VIAL (for RAD DIAG) IV ONE (08:30)
[2016-09-26 09:24] VITALS: BP 95/57; PULSE 52; O2SAT 100
--- NOTE | 2016-09-26 09:24 | RADRPT ---
EXAM DATE/TIME: 09/26/2016 08:20 [place] COMPARISON: No previous studies available for comparison. INDICATIONS : Left upper neck and left facial swelling. IV CONTRAST: 65 cc Omnipaque 350 (iohexol) IV RADIATION DOSE: 13.46 CTDIvol (mGy) ; Patient motion MEDICAL HISTORY : Hypertension. Gastroesophageal reflux disease. Cardiovascular disease SURGICAL HISTORY : None. ENCOUNTER: Initial ACUITY: 4 - 6 days PAIN SCALE: 7/10 LOCATION: Left neck TECHNIQUE: Volumetric scanning of the neck was performed. Using automated exposure control and adjustment of th e mA and/or kV according to patient size, radiation dose was kept as low as reasonably achievable to obtain optimal diagnostic quality images. DICOM format image data is available electronically for r eview and comparison. FINDINGS: There is soft tissue swelling over the left side of the face center for the most part around the paro tid. I don't see defined abscess. There is nonspecific adenopathy in the left neck with the largest node measuring 1.4 cm. The soft tissue induration extends midway down the left neck. The low neck is unremarkable. The nasopharynx is unremarkable There is mild asymmetry of the tonsils with the left tonsil more prominent than the right in the nons pecific fashion. The lung apex is clear. CONCLUSION: Soft tissue swelling left side of the neck without focal deep space abscess and appe ars to be centered around the parotid. This may be simple sialadenitis. Followup would be of benefi t to monitor the adenopathy in the left neck and asymmetry of the left tonsil. Ariel Powers MD FACR on September 26, 2016 at 9:18 Board Certified Radiologist. This report was verified electronically.
[2016-09-26] MEDS ORDERED: AMOX500T PO (09:32)
== END 2016-09-26 10:15 | disposition home or self-care (01) ==
LOC: PHED 07:07
DX: K11.20 Sialoadenitis, unspecified (principal); R51 Headache; F17.200 Nicotine dependence, unspecified, uncomplicated; Z86.79 Personal history of other diseases of the circulatory system; Z87.19 Personal history of other diseases of the digestive system; Z87.39 Personal history of other diseases of the musculoskeletal system and connective tissue; Z86.69 Personal history of other diseases of the nervous system and sense organs
CPT/HCPCS: 70491; 80048; 82150; 85025; 85610; 85730; 99285; Q9967

== ENCOUNTER 2017-11-25 13:43 | Observation (INO) ==
--- NOTE | 2017-11-25 14:11 | ED ---
HPI General Chief Complaint: Syncope Stated Complaint: Poss syncope Time Seen by Provider: 11/25/17 13:58 Source: patient Mode of arrival: EMS Limitations: no limitations History of Present Illness HPI narrative: 57 y/o male presents by ambulance after having a syncopal event while he was sitting in a car after mowing a lawn. He had chest pain in the ambulance team does not have Cardizem so for his A. fib with RVR he was given of 150 mg of amiodarone. Patient states he is feeling better now. He states he has a history of atrial fibrillation and is not on any of his medications. He states he currently does not have a doctor. complaint: Reports felt faint Onset (ago): minute(s) Prodromal symptoms: Reports lightheaded Witnessed: yes - by bystander Injuries sustained associated with event: Reports none Current symptoms: Reports none Treatments prior to arrival: Reports medication Related Data Home Medications Medication Instructions Recorded Confirmed No Known Home Medications 11/25/17 11/25/17 Allergies Allergy/AdvReac Type Severity Reaction Status Date / Time No Known Allergies Allergy Verified 11/25/17 14:08 Review of Systems ROS: all other systems reviewed are negative [facility] Medical History Medical History Afib (Acute) Traumatic brain injury (Acute) Social History Social History Substance History: No History of Abuse Second Hand Smoke Exposure: Yes Smoking Status: Current some day smoker Tobacco Type: Cigarettes How Often Do You Have a Drink Containing Alcohol: Never Recent Travel in [facility] within the Last 8 Weeks: No Recent Out of Country Travel within the Last 8 Weeks: No Exam Narrative Exam Narrative: GENERAL: 57 y/o male in no apparent distress SKIN: Focused skin assessment warm/dry. HEAD: Atraumatic. Normocephalic. EYES: Pupils equal and round. No scleral icterus. No injection or drainage. ENT: No nasal bleeding or discharge. Mucous membranes pink and moist. NECK: Trachea midline. CARDIOVASCULAR: irregular rate and rhythm. RESPIRATORY: No accessory muscle use. Clear to auscultation. Breath sounds equal bilaterally. GASTROINTESTINAL: Abdomen soft, non-tender, nondistended. MUSCULOSKELETAL: No obvious deformities. No clubbing. No cyanosis. NEUROLOGICAL: Awake and alert. Motor grossly within normal limits. Normal speech. Course Reevaluation(s) Reevaluation #1: Heart rate has remained controlled after 10 of Cardizem. Patient updated and agrees to admission for further monitoring Consultations Consultation #1: dr man agrees to admit Initial Documented Vital Signs Temperature 98.5 F 11/25/17 13:56 Pulse Rate 137 H 11/25/17 13:56 Respiratory Rate 20 11/25/17 13:56 Blood Pressure 88/57 L 11/25/17 13:56 Pulse Oximetry 95 11/25/17 13:56 Last Documented Vital Signs Temperature 98.5 F 11/25/17 13:56 Pulse Rate 82 11/25/17 17:30 Respiratory Rate 20 11/25/17 17:30 Blood Pressure 112/59 L 11/25/17 17:30 Pulse Oximetry 99 11/25/17 17:30 Medical Decision Making MDM Narrative Medical decision making narrative: Will check blood work, imaging and dose with Cardizem Medical Screen Exam Complete: Yes Emergency Medical Condition: Yes Differential Diagnosis Differential Diagnosis: A. fib with RVR, SVT, PE, CT Lab Data Lab results reviewed: Yes I reviewed the patient's lab results. Result diagrams: 11/25/17 14:20 11/25/17 14:20 Lab Results 11/25/17 11/25/17 11/25/17 Range/Units 14:20 14:20 14:20 WBC 10.3 (4.0-11.0) th/mm3 RBC 4.21 L (4.50-5.90) mil/mm3 Hgb 14.1 (13.0-17.0) gm/dL Hct 40.6 (39.0-51.0) % MCV 96.4 (80.0-100.0) fL MCH 33.5 (27.0-34.0) pg MCHC 34.7 (32.0-36.0) % RDW 13.3 (11.6-17.2) % Plt Count 225 (150-450) th/mm3 MPV 8.6 (7.0-11.0) fL Neut % (Auto) 79.7 H (16.0-70.0) % Lymph % (Auto) 12.3 (9.0-44.0) % Grand % (Auto) 7.2 (0.0-8.0) % Eos % (Auto) 0.4 (0.0-4.0) % Baso % (Auto) 0.4 (0.0-2.0) % Neut # (Auto) 8.2 H (1.8-7.7) th/mm3 Lymph # (Auto) 1.3 (1.0-4.8) th/mm3 Grand # (Auto) 0.7 (0.0-0.9) th/mm3 Eos # (Auto) 0.0 (0.0-0.4) th/mm3 Baso # (Auto) 0.0 (0.0-0.2) th/mm3 WBC Differential . Differential Comment Auto diff final PT 10.4 (9.8-11.6) sec INR 1.0 Ratio APTT 23.3 L (24.3-30.1) sec Sodium 136 (136-145) meq/L Potassium 4.4 (3.5-5.1) meq/L Chloride 103 (98-107) meq/L Carbon Dioxide 23.6 (21.0-32.0) meq/L Anion Gap 9 (5-15) meq/L BUN 23 H (7-18) mg/dL Creatinine 1.82 H (0.60-1.30) mg/dL Estimated GFR 38 L (>89) mL/min Random Glucose 192 H (74-106) mg/dL Calcium 8.0 L (8.5-10.1) mg/dL Magnesium 2.5 (1.5-2.5) mg/dL Total Bilirubin 1.4 H (0.2-1.0) mg/dL AST 18 (15-37) U/L ALT 20 (12-78) U/L Alkaline Phosphatase 63 (45-117) U/L Total Creatine Kinase 168 (39-308) U/L CK-MB (CK-2) 1.6 (0.5-3.6) ng/mL Troponin I Less than 0.02 L (0.02-0.05) ng/mL Total Protein 7.5 (6.4-8.2) g/dL Albumin 3.9 (3.4-5.0) g/dL Imaging Data Attestation: I personally reviewed and interpreted this imaging study as follows : Radiologist's impression: Chest CTA 11/25/17 13:59 CONCLUSION: 1. No evidence for pulmonary embolism. Chest X-Ray 11/25/17 14:00 CONCLUSION: 1. Slightly more pronounced left lung base nodular opacity in comparison to prior exam. This nodule may be calcified. This will be further evaluated on already requested PE CT exam. Discharge Plan Discharge Disposition Patient Disposition: 30 Still Patient Discharge Details Diagnosis: Atrial fibrillation with RVR, Syncope Physicians Team ED Provider: Jocelin Segovia Primary Care Provider: UNKNOWN, Rxs /Orders / Referrals /Forms Prescriptions: No Action No Known Home Medications RF: 0 Discharge Interventions Interventions: Vital Signs Last Done: 11/25/17 17:30 Status ED Status: Admitted Observation Patient
[2017-11-25] MEDS ORDERED: Sod Chloride 0.9% Inj 1,000 ML IV.SIG SCH ×2 (14:15→14:45)
--- NOTE | 2017-11-25 14:32 | XR ---
EXAM DATE: 11/25/2017 2:00 PM EDT AGE/SEX: 57 years / Male INDICATIONS: Chest pain. CLINICAL DATA: This is the patient's initial encounter. Patient reports that signs and symptoms have been present for 1 day and indicates a pain score of 10/10. MEDICAL/SURGICAL HISTORY: Hypertension. Gastroesophageal reflux disease. None. COMPARISON: [facility] [place], CHEST SINGLE AP, 09/16/2016. . FINDINGS: Slightly more pronounced nodular opacity in the extreme left lung base which may be partially calcifi ed. Lungs are otherwise clear. The cardiomediastinal contours are unremarkable. Osseous structures a re intact. CONCLUSION: 1. Slightly more pronounced left lung base nodular opacity in comparison to prior exam. This nodule may be calcified. This will be further evaluated on already requested PE CT exam. Electronically signed by: Сергей Guajardo MD 11/25/2017 2:31 PM EDT
[2017-11-25 14:36] LABS: Baso % (Auto) 0.4 % (0.0-2.0); Eos % (Auto) 0.4 % (0.0-4.0); Hematocrit 40.6 % (39.0-51.0); Hemoglobin 14.1 gm/dL (13.0-17.0); Lymph # (Auto) 1.3 th/mm3 (1.0-4.8); Lymph % (Auto) 12.3 % (9.0-44.0); Mean Corpuscular HGB Conc 34.7 % (32.0-36.0); Mean Corpuscular Hemoglobin 33.5 pg (27.0-34.0); Mean Corpuscular Volume 96.4 fL (80.0-100.0); Mean Platelet Volume 8.6 fL (7.0-11.0); Mono # (Auto) 0.7 th/mm3 (0.0-0.9); Mono % (Auto) 7.2 % (0.0-8.0); Neut # (Auto) 8.2 th/mm3 (1.8-7.7); Neut % (Auto) 79.7 % (16.0-70.0); Platelet Count 225 th/mm3 (150-450); Red Blood Count 4.21 mil/mm3 (4.50-5.90); Red Cell Distribution Width 13.3 % (11.6-17.2); White Blood Count 10.3 th/mm3 (4.0-11.0)
[2017-11-25 14:47] LABS: Activated Partial Thrombo Time 23.3 sec (24.3-30.1); Prothrombin Time 10.4 sec (9.8-11.6)
[2017-11-25 15:02] LABS: Albumin 3.9 g/dL (3.4-5.0); Anion Gap 9 meq/L (5-15); Aspartate Aminotransferase 18 U/L (15-37); Blood Urea Nitrogen 23 mg/dL (7-18); Carbon Dioxide 23.6 meq/L (21.0-32.0); Chloride 103 meq/L (98-107); Glomerular Filtration Rate 38 mL/min (>89); Glucose,Random 192 mg/dL (74-106); Magnesium 2.5 mg/dL (1.5-2.5); Potassium 4.4 meq/L (3.5-5.1); Sodium 136 meq/L (136-145)
[2017-11-25 15:10] LABS: Alanine Aminotransferase 20 U/L (12-78); Alkaline Phosphatase 63 U/L (45-117); Creatine Kinase 168 U/L (39-308); Total Protein 7.5 g/dL (6.4-8.2)
[2017-11-25 15:22] LABS: Creatine Kinase MB 1.6 ng/mL (0.5-3.6)
--- NOTE | 2017-11-25 17:09 | CT ---
EXAM DATE: 11/25/2017 3:11 PM EDT AGE/SEX: 57 years / Male INDICATIONS: Shortness of breath today. CLINICAL DATA: This is the patient's initial encounter. Patient reports that signs and symptoms have been present for 1 day and indicates a pain score of 0/10. MEDICAL/SURGICAL HISTORY: Cardiovascular disease. None. RADIATION DOSE: 13.84 CTDI (mGy) COMPARISON: C, CHEST 1V SINGLE AP, 11/25/2017. . TECHNIQUE: Volumetric scanning was performed using a multi-row detector CT scanner during bolus infu mani of 50 ml Visipaque 320 (iodixanol) nonionic water-soluble contrast as a single exam dose. The d [place] was post processed with a variety of visualization algorithms including full volume maximum inten sity projection and sliding thin slab reformation. Using automated exposure control and adjustment o f the mA and/or kV according to patient size, radiation dose was kept as low as reasonably achievable to obtain optimal diagnostic quality images. DICOM format image data is available electronically fo r review and comparison. FINDINGS: There is a calcified granuloma in the left lower lobe versus hamartoma measuring 1.6 cm. This corresp onds to the nodule seen on the plain radiographs. The lungs are otherwise clear. No pleural or perica rdial effusions are identified. There is no evidence for pulmonary embolism. There are degenerative c hanges of the spine. CONCLUSION: 1. No evidence for pulmonary embolism. Electronically signed by: Kody Red MD 11/25/2017 5:08 PM EDT
--- NOTE | 2017-11-25 18:21 | P.HPIM ---
History of Present Illness Primary Care Physician: UNKNOWN History of Present Illness: Mr. Woods is a 57-year-old male. He has a past history of atrial fibrillation or atrial flutter. He has been on treatments for this in the past. His financial status precludes him from being able to afford treatments all the time. Recently he is not been able to take treatments as prescribed. He was working outside today and had onset of dizziness and shortness of breath. He came to the emergency department and is found to be in a flutter with RVR. No chest pain is reported. No nausea or vomiting. - Diagnosis (1) Atrial flutter with rapid ventricular response (2) Atrial fibrillation with RVR Review of Systems Constitutional: No fevers, no chills no night sweats, no fatigue, no weakness Eyes: No eye pain, no blurry vision, no loss of vision ENT: No sore throat, no ear pain, no rhinorrhea Cardiovascular: No chest pain, tachycardia, palpitations, shortness of breath, no syncope Respiratory: No wheezing, no cough, no shortness of breath Gastrointestinal: No abdominal pain, no black tarry stools, no bright red blood per rectum, no vomiting, no diarrhea Musculoskeletal: No joint pain, no muscle cramps, no stiffness Integumentary: No rash, no ulcers, no drainage Neurologic: No sensory loss, no loss of motor function, no dizziness Psychiatric: No behavioral changes, no hallucinations, no suicidal ideations PMFSH - History History Provided By: Patient - Medical History Medical History: Medical History (Last Reviewed 11/25/17 @ 14:10 by Jocelin Segovia MD) Afib Traumatic brain injury - Family History Family History: Family History (Last Updated 11/25/17 @ 18:17 by Chase Mehta MD) Other Osteoarthritis - Tobacco History Second Hand Smoke Exposure: Yes Tobacco Use In Past 30 Days: Yes Smoking Status: Current some day smoker Tobacco Type: Cigarettes - Alcohol History How Often Do You Have a Drink Containing Alcohol: Never - Substance Use History Substance History: No History of Abuse - Travel History Recent Travel in the [place] Within the Last 8 Weeks: No Recent Travel Out of the Country Within the Last 8 Weeks: No - Immunization History Tetanus Immunization: >5 Years Medications and Allergies Active Medications: Active Medications Sodium Chloride (Ns Inj) 1,000 mls @ 0 mls/hr IV.SIG BOLUS RAUL Last Infusion: 11/25/17 15:24 Dose: Infused Sodium Chloride (Ns Inj) 1,000 mls @ 0 mls/hr IV.SIG BOLUS RAUL Last Infusion: 11/25/17 15:45 Dose: Infused Sodium Chloride (Ns Flush) 2 ml IV.FLUSH UNSCH PRN PRN Reason: FLUSH AFTER USING IV ACCESS Allergies Allergy/AdvReac Type Severity Reaction Status Date / Time No Known Allergies Allergy Verified 11/25/17 14:08 Home Medications Medication Instructions Recorded Confirmed Type No Known Home Medications 11/25/17 11/25/17 History Exam Vital signs: Vital Signs 11/25/17 13:56 11/25/17 14:05 11/25/17 14:07 Temperature 98.5 F Pulse Rate 137 H 136 H Respiratory Rate 20 Blood Pressure 88/57 L Pulse Oximetry 95 96 11/25/17 14:44 11/25/17 17:30 Temperature Pulse Rate 104 H 82 Respiratory Rate 18 20 Blood Pressure 91/65 L 112/59 L Pulse Oximetry 96 99 Intake & Output 11/24/17 11/25/17 11/25/17 18:59 06:59 18:59 Intake Total 1999 Balance 1999 Weight 83.915 kg Intake: IV 1999 NS Inj 1,000 ML @ Wide Open IV. 1999 SIG BOLUS RAUL Rx#:[id number] Narrative: GENERAL: NAD, A&Ox3 HEAD: Normocephalic. NECK: Supple, trachea midline. No lymphadenopathy. EYES: No scleral icterus. No injection or drainage. CARDIOVASCULAR: Regular rate and rhythm without murmurs, gallops, or rubs. RESPIRATORY: Breath sounds equal bilaterally. No accessory muscle use. GASTROINTESTINAL: Abdomen soft, non-tender, nondistended. MUSCULOSKELETAL: No cyanosis, or edema. SKIN: Warm and dry. NEURO: No focal neurological deficits. Results - Labs CBC & Chem 7: 11/25/17 14:20 11/25/17 14:20 Labs: Short CBC 11/25/17 Range/Units 14:20 WBC 10.3 (4.0-11.0) th/mm3 Hgb 14.1 (13.0-17.0) gm/dL Hct 40.6 (39.0-51.0) % Plt Count 225 (150-450) th/mm3 BMP 11/25/17 14:20 Sodium 136 Potassium 4.4 Chloride 103 Carbon Dioxide 23.6 BUN 23 H Creatinine 1.82 H Calcium 8.0 L Cardiac Enzymes 11/25/17 Range/Units 14:20 Total Creatine Kinase 168 (39-308) U/L CK-MB (CK-2) 1.6 (0.5-3.6) ng/mL Troponin I Less than 0.02 L (0.02-0.05) ng/mL Liver Function 11/25/17 Range/Units 14:20 Total Bilirubin 1.4 H (0.2-1.0) mg/dL AST 18 (15-37) U/L ALT 20 (12-78) U/L Alkaline Phosphatase 63 (45-117) U/L Albumin 3.9 (3.4-5.0) g/dL - Imaging Impressions Chest CTA 11/25/17 13:59 CONCLUSION: 1. No evidence for pulmonary embolism. Chest X-Ray 11/25/17 14:00 CONCLUSION: 1. Slightly more pronounced left lung base nodular opacity in comparison to prior exam. This nodule may be calcified. This will be further evaluated on already requested PE CT exam. Caprini VTE Risk Assessment Caprini VTE Risk Assessment: No/Low Risk (score <= 1) Caprini Risk Assessment Model: Point Value = 1 Point Value = 2 Point Value = 3 Point Value = 5 Age 41-60 Minor surgery BMI > 25 kg/m2 Swollen legs Varicose veins or History of unexplained or recurrent spontaneous Oral contraceptives or hormone replacement Sepsis (< 1 month) Serious lung disease, including pneumonia (< 1 month) Abnormal pulmonary function Acute myocardial infarction Congestive heart failure (< 1 month) History of inflammatory bowel disease Medical patient at bed rest Age 61-74 Arthroscopic surgery Major open surgery (> 45 min) Laparoscopic surgery (> 45 min) Malignancy Confined to bed (> 72 hours) Immobilizing plaster cast Central venous access Age >= 75 History of VTE Family history of VTE Factor V Leiden Prothrombin [id number] Lupus anticoagulant Anticardiolipin antibodies Elevated serum homocysteine Heparin-induced thrombocytopenia Other congenital or acquired thrombophilia Stroke (< 1 month) Elective arthroplasty Hip, pelvis, or leg fracture Acute spinal cord injury (< 1 month) Prophylaxis Regimen: Total Risk Factor Score Risk Level Prophylaxis Regimen 0-1 Low Early ambulation 2 Moderate Order ONE of the following: *Sequential Compression Device (SCD) *Heparin 5000 units SQ BID 3-4 Higher Order ONE of the following medications: *Heparin 5000 units SQ TID *Enoxaparin/Lovenox 40 mg SQ daily (WT < 150 kg, CrCl > 30 mL/min) *Enoxaparin/Lovenox 30 mg SQ daily (WT < 150 kg, CrCl > 10-29 mL/min) *Enoxaparin/Lovenox 30 mg SQ BID (WT < 150 kg, CrCl > 30 mL/min) AND/OR *Sequential Compression Device (SCD) 5 or more Highest Order ONE of the following medications: *Heparin 5000 units SQ TID (Preferred with Epidurals) *Enoxaparin/Lovenox 40 mg SQ daily (WT < 150 kg, CrCl > 30 mL/min) *Enoxaparin/Lovenox 30 mg SQ daily (WT < 150 kg, CrCl > 10-29 mL/min) *Enoxaparin/Lovenox 30 mg SQ BID (WT < 150 kg, CrCl > 30 mL/min) AND *Sequential Compression Device (SCD) Assessment and Plan - Assessment (1) Atrial flutter with rapid ventricular response Code(s): I48.92 - Unspecified atrial flutter Status: Acute (2) Atrial fibrillation with RVR Code(s): I48.91 - Unspecified atrial fibrillation Status: Acute - Plan 57-year-old male admitted secondary to atrial flutter with RVR Atrial flutter with RVR Cardiology consulted Diltiazem provided IV and resolved patient's condition Continue p.o. diltiazem Monitor for any recurrence of RVR Follow on telemetry Daily aspirin Follow-up troponin in a.m. DVT prophylaxis Heparin
[2017-11-25] MEDS: Heparin - SQ 10,000 UNITS/ML Vial SQ SCH (18:47)
[2017-11-25] MEDS: Sod Chloride 0.9% Inj 1,000 ML IV.CONT SCH (18:47)
[2017-11-25 21:09] VITALS: RESP 16
[2017-11-26] MEDS: Sod Chloride 0.9% Inj 1,000 ML IV.CONT SCH ×2 (03:58→15:32)
[2017-11-26] MEDS: dilTIAZem 30 MG Tablet PO SCH ×3 (05:14→13:00)
[2017-11-26] MEDS: Heparin - SQ 10,000 UNITS/ML Vial SQ SCH (05:59)
[2017-11-26 07:38] LABS: Baso % (Auto) 0.6 % (0.0-2.0); Eos # (Auto) 0.1 th/mm3 (0.0-0.4); Eos % (Auto) 1.8 % (0.0-4.0); Hematocrit 39.4 % (39.0-51.0); Hemoglobin 13.3 gm/dL (13.0-17.0); Lymph % (Auto) 31.1 % (9.0-44.0); Mean Corpuscular HGB Conc 33.7 % (32.0-36.0); Mean Corpuscular Volume 98.1 fL (80.0-100.0); Mean Platelet Volume 8.7 fL (7.0-11.0); Mono # (Auto) 0.6 th/mm3 (0.0-0.9); Mono % (Auto) 9.3 % (0.0-8.0); Neut # (Auto) 3.8 th/mm3 (1.8-7.7); Neut % (Auto) 57.2 % (16.0-70.0); Platelet Count 199 th/mm3 (150-450); Red Blood Count 4.02 mil/mm3 (4.50-5.90); Red Cell Distribution Width 13.5 % (11.6-17.2); White Blood Count 6.6 th/mm3 (4.0-11.0)
[2017-11-26 08:12] LABS: Albumin 3.3 g/dL (3.4-5.0); Anion Gap 9 meq/L (5-15); Aspartate Aminotransferase 14 U/L (15-37); Blood Urea Nitrogen 17 mg/dL (7-18); Calcium 8.1 mg/dL (8.5-10.1); Carbon Dioxide 25.5 meq/L (21.0-32.0); Chloride 107 meq/L (98-107); Glomerular Filtration Rate 69 mL/min (>89); Glucose,Random 100 mg/dL (74-106); Potassium 3.9 meq/L (3.5-5.1); Sodium 141 meq/L (136-145)
[2017-11-26 08:17] LABS: Alanine Aminotransferase 18 U/L (12-78); Alkaline Phosphatase 51 U/L (45-117); Total Protein 6.7 g/dL (6.4-8.2)
--- NOTE | 2017-11-26 08:26 | P.CONCA ---
History of Present Illness Service: cardiology Consult date: 11/26/17 Requesting Physician: Chase Mehta Reason for Consult: atrial flutter Primary Care Provider: UNKNOWN Chief Complaint: syncope History of Present Illness: Is a 57-year-old gentleman with a history of atrial flutter in September 2016 where he presented at that time with lightheadedness, dizziness and was found to be in atrial flutter with rapid ventricular response. He was diagnosed with nonischemic cardiomyopathy, LVEF 30-35% at that time. Apparently he was in his usual state of health until yesterday afternoon when he was riding in the back of a truck and had a syncopal event. Preceding the event, he had a sensation of a rapid heart rate and dyspnea. EMS was called and he was found to be in atrial flutter with rapid ventricular response HR 140s. Apparently was administered amiodarone 150 mg x1. In the ER, he received diltiazem 10 mg IV x1. He remained in normal sinus rhythm overnight after converting. He has been asymptomatic ever since. He reports that he had one other episode of similar nature to his presenting symptoms back in July 2017 which was also similar in nature to his previous admission in September 2016 when he was diagnosed with atrial flutter with rapid ventricular response and nonischemic cardiomyopathy. Denied any chest pain, lower extremity edema, PND or recent exercise capacity limitations. He has not been on any medications at home as was previously prescribed. Denies any bright red blood per rectum or melanotic stools. No bleeding issues. Review of Systems All other systems reviewed negative except as stated in HPI PMFSH - History History Provided By: Patient - Medical History Medical History: Medical History (Last Reviewed 11/25/17 @ 14:10 by Jocelin Segovia MD) Afib Traumatic brain injury - Family History Family History: Family History (Last Updated 11/25/17 @ 18:17 by Chase Mehta MD) Other Osteoarthritis - Tobacco History Second Hand Smoke Exposure: Yes Tobacco Use In Past 30 Days: Yes Smoking Status: Heavy tobacco smoker Tobacco Type: Cigarettes - Alcohol History How Often Do You Have a Drink Containing Alcohol: 4 or more times a week - Substance Use History Substance History: No History of Abuse - Travel History Recent Travel in the [place] Within the Last 8 Weeks: No Recent Travel Out of the Country Within the Last 8 Weeks: No - Immunization History Tetanus Immunization: >5 Years Medications and Allergies Active Medications: Active Medications Al Hydroxide/Mg Hydroxide (Milk Of Richy Mathews) 30 ml PO Q12H PRN PRN Reason: Mild Constipation Aspirin (Aspirin) 325 mg PO DAILY [facility] Last Admin: 11/26/17 08:06 Dose: 325 mg Digoxin (Lanoxin) 125 mcg PO DAILY [facility] Diltiazem HCl (Cardizem) 30 mg PO QID [facility] Last Admin: 11/26/17 08:06 Dose: 30 mg Heparin Sodium (Porcine) (Heparin Inj) 5,000 units SQ Q12H RAUL Last Admin: 11/26/17 05:59 Dose: 5,000 units Sodium Chloride (Ns Inj) 1,000 mls @ 0 mls/hr IV.SIG BOLUS [facility] Last Infusion: 11/25/17 15:24 Dose: Infused Sodium Chloride (Ns Inj) 1,000 mls @ 0 mls/hr IV.SIG BOLUS [facility] Last Infusion: 11/25/17 15:45 Dose: Infused Sodium Chloride (Ns Inj) 1,000 mls @ 100 mls/hr IV.CONT .Q10H [facility] Last Admin: 11/26/17 03:58 Dose: 100 mls/hr Ondansetron HCl (Zofran Inj) 4 mg IV.PUSH Q6H PRN PRN Reason: NAUSEA OR VOMITING Rivaroxaban (Xarelto) 15 mg PO DAILY [facility] Sodium Chloride (Ns Flush) 2 ml IV.FLUSH UNSCH PRN PRN Reason: FLUSH AFTER USING IV ACCESS Allergies Allergy/AdvReac Type Severity Reaction Status Date / Time No Known Allergies Allergy Verified 11/25/17 14:08 Home Medications Medication Instructions Recorded Confirmed Type No Known Home Medications 11/25/17 11/25/17 History Exam Vital signs: Vital Signs 11/25/17 13:56 11/25/17 14:05 11/25/17 14:07 Temperature 98.5 F Pulse Rate 137 H 136 H Respiratory Rate 20 Blood Pressure 88/57 L Pulse Oximetry 95 96 11/25/17 14:44 11/25/17 17:30 11/25/17 18:46 Temperature Pulse Rate 104 H 82 99 H Respiratory Rate 18 20 18 Blood Pressure 91/65 L 112/59 L 119/64 Pulse Oximetry 96 99 97 11/25/17 19:12 11/25/17 20:00 11/25/17 22:37 Temperature 98.6 F Pulse Rate 72 99 H Respiratory Rate 18 16 Blood Pressure 111/75 99/65 L Pulse Oximetry 100 94 L 95 11/26/17 00:00 11/26/17 04:00 11/26/17 04:13 Temperature 98.3 F 98.4 F Pulse Rate 76 72 61 Respiratory Rate 16 16 Blood Pressure 99/58 L 98/54 L Pulse Oximetry 94 L 93 L 11/26/17 07:11 Temperature 98.1 F Pulse Rate 51 L Respiratory Rate 16 Blood Pressure 112/62 Pulse Oximetry 97 Intake & Output 11/25/17 11/26/17 11/26/17 18:59 06:59 18:59 Intake Total 1999 1240 / 1240 Output Total 560 / 560 Balance 1440 / 1440 1240 / 1240 Weight 83.915 kg Intake: IV 1999 1000 / 1000 NS Inj 1,000 ML @ 100 mls/hr IV 1000 / 1000 .CONT .Q10H RAUL Rx#:[id number] NS Inj 1,000 ML @ Wide Open IV. 1999 SIG BOLUS RAUL Rx#:[id number] Oral 240 / 240 Output: Urine 560 / 560 Other: # Voids 1 Date of Last Bowel Movement 11/24/17 Narrative: GENERAL: Comfortable appearing, speaking full sentences. Missing a few teeth SKIN: Warm and dry. HEAD: Atraumatic. Normocephalic. NECK: Trachea midline. No JVD. CARDIOVASCULAR: Regular rate and rhythm. RESPIRATORY: No accessory muscle use. Clear to auscultation. Breath sounds equal bilaterally. GASTROINTESTINAL: Abdomen soft, non-tender, nondistended. MUSCULOSKELETAL: Extremities without clubbing, cyanosis, or edema. No obvious deformities. NEUROLOGICAL: Awake and alert. No obvious cranial nerve deficits.Normal speech. PSYCHIATRIC: Appropriate mood and affect; insight and judgment normal. Results 11/26/17 07:00 11/25/17 14:20 Cardiac Enzymes 11/25/17 Range/Units 14:20 AST 18 (15-37) U/L CK-MB (CK-2) 1.6 (0.5-3.6) ng/mL Troponin I Less than 0.02 L (0.02-0.05) ng/mL Coagulation 11/25/17 Range/Units 14:20 PT 10.4 (9.8-11.6) sec APTT 23.3 L (24.3-30.1) sec CBC 11/25/17 11/26/17 Range/Units 14:20 07:00 WBC 10.3 6.6 (4.0-11.0) th/mm3 RBC 4.21 L 4.02 L (4.50-5.90) mil/mm3 Hgb 14.1 13.3 (13.0-17.0) gm/dL Hct 40.6 39.4 (39.0-51.0) % Plt Count 225 199 (150-450) th/mm3 Neut # (Auto) 8.2 H 3.8 (1.8-7.7) th/mm3 Lymph # (Auto) 1.3 2.0 (1.0-4.8) th/mm3 [place] # (Auto) 0.7 0.6 (0.0-0.9) th/mm3 Eos # (Auto) 0.0 0.1 (0.0-0.4) th/mm3 Baso # (Auto) 0.0 0.0 (0.0-0.2) th/mm3 Comprehensive Metabolic Panel 11/25/17 Range/Units 14:20 Sodium 136 (136-145) meq/L Potassium 4.4 (3.5-5.1) meq/L Chloride 103 (98-107) meq/L Carbon Dioxide 23.6 (21.0-32.0) meq/L BUN 23 H (7-18) mg/dL Creatinine 1.82 H (0.60-1.30) mg/dL Calcium 8.0 L (8.5-10.1) mg/dL AST 18 (15-37) U/L ALT 20 (12-78) U/L Alkaline Phosphatase 63 (45-117) U/L Total Protein 7.5 (6.4-8.2) g/dL Albumin 3.9 (3.4-5.0) g/dL Intake and Output 11/25/17 11/26/17 11/26/17 22:59 06:59 14:59 Intake Total 2240 / 2240 1000 / 1000 Output Total 560 / 560 Balance 1680 / 1680 1000 / 1000 Intake: IV 1999 / 1999 1000 / 1000 NS Inj 1,000 ML @ 100 mls/hr IV 1000 / 1000 .CONT .Q10H RAUL Rx#:[id number] NS Inj 1,000 ML @ Wide Open IV. 1999 SIG BOLUS RAUL Rx#:[id number] Oral 240 / 240 Output: Urine 560 / 560 Other: # Voids 1 Date of Last Bowel Movement 11/24/17 - Imaging and Cardiology Imaging: Impressions Chest CTA 11/25/17 13:59 CONCLUSION: 1. No evidence for pulmonary embolism. Chest X-Ray 11/25/17 14:00 CONCLUSION: 1. Slightly more pronounced left lung base nodular opacity in comparison to prior exam. This nodule may be calcified. This will be further evaluated on already requested PE CT exam. Assessment and Plan - Plan Assessment: Paroxysmal atrial flutter with rapid ventricular response, currently in normal sinus rhythm Nonischemic cardiomyopathy, last LVEF 30-35% in 09/2017 Acute kidney injury, suspected prerenal azotemia Syncope Homelessness Recommendations: Repeat echocardiogram to reevaluate LV systolic function. If LVEF remains less than 35%, AICD therapy for primary prevention, possibly secondary prevention with his history of multiple syncopal events would be appropriate. Start chronic anticoagulation therapy, Xarelto would be appropriate. Will renally dose for now at 15 mg daily Provide appropriate hydration with IV normal saline Repeat BMP to follow DILMA Continue monitoring on telemetry for potential ventricular arrhythmia as cause of syncope Digoxin 125 mcg daily, due to relative hypotension and history of cardiomyopathy Social work consultation to assist patient with obtaining outpatient medications Narendra 09/2017 was nonischemic as noted
[2017-11-26] MEDS ORDERED: Aspirin 325 MG Tablet PO SCH (09:00)
[2017-11-26] MEDS ORDERED: Digoxin 125 MCG Tablet PO SCH (09:00)
[2017-11-26] MEDS ORDERED: Rivaroxaban 15 MG Tablet PO SCH (10:00)
[2017-11-26 12:14] VITALS: BP 124/65; PULSE 54; TEMP 97.5; O2SAT 100
--- NOTE | 2017-11-26 12:57 | ECHRPT ---
Indication: CARDIOMYOPATHY CONCLUSIONS Normal left ventricular size. Wall thickness is normal. The left ventricular systolic function is mildly reduced with an estimated ejection fraction of 45% . No atrial level shunt is demonstrated by color flow Doppler interrogation. The aortic root and proximal ascending aorta are not well visualized. Slight aortic valve sclerosis is present. There is trace tricuspid valve regurgitation. The estimated pulmonary arterial pressure is 31.7 mmHg. The pulmonary valve is not well visualized. BP: / HR: Rhythm: Sinus MEASUREMENTS (Male / Female) Normal Values Technical Quality:Fair 2D ECHO LV Diastolic Diameter PLAX 6.0 cm 4.2 - 5.9 / 3.9 - 5.3 cm LV Systolic Diameter PLAX 4.1 cm IVS Diastolic Thickness 1.0 cm 0.6 - 1.0 / 0.6 - 0.9 cm LVPW Diastolic Thickness 1.0 cm 0.6 - 1.0 / 0.6 - 0.9 cm LV Relative Wall Thickness 0.3 RV Internal Dim ED PLAX 2.6 cm LVOT Diameter 2.3 cm Aortic Root Diameter 3.4 cm LA Systolic Diameter LX 3.9 cm 3.0 - 4.0 / 2.7 - 3.8 cm M-MODE AV Cusp Separation MM 1.9 cm DOPPLER AV Peak Velocity 125.0 cm/s AV Peak Gradient 6.3 mmHg AV Mean Gradient 4.0 mmHg AV Velocity Time Integral 26.1 cm LVOT Peak Velocity 77.5 cm/s LVOT Peak Gradient 2.4 mmHg LVOT Velocity Time Integral 17.3 cm AV Area Cont Eq vti 2.8 cm AV Area Cont Eq pk 2.6 cm Mitral E Point Velocity 79.0 cm/s Mitral A Point Velocity 54.3 cm/s Mitral E to A Ratio 1.5 LV E' Lateral Velocity 11.0 cm/s Mitral E to LV E' Lateral Ratio 7.2 LV E' Septal Velocity 7.7 cm/s Mitral E to LV E' Septal Ratio 10.3 TR Peak Velocity 233.0 cm/s TR Peak Gradient 21.7 mmHg Right Atrial Pressure 10.0 mmHg Pulmonary Artery Systolic Pressu 31.7 mmHg Right Ventricular Systolic Press 31.7 mmHg PV Peak Velocity 39.1 cm/s PV Peak Gradient 0.6 mmHg FINDINGS LEFT VENTRICLE Normal left ventricular size. Wall thickness is normal. The left ventricular systolic function is mildly reduced with an estimated ejection fraction of 45%. RIGHT VENTRICLE Normal right ventricular size and systolic function. LEFT ATRIUM The left atrial size is normal. RIGHT ATRIUM The right atrial size is normal. ATRIAL SEPTUM No atrial level shunt is demonstrated by color flow Doppler interrogation. AORTA The aortic root and proximal ascending aorta are not well visualized. MITRAL VALVE Structurally normal mitral valve. No mitral valve stenosis or regurgitation. AORTIC VALVE Aortic valve sclerosis is present. TRICUSPID VALVE There is trace tricuspid valve regurgitation. The estimated pulmonary arterial pressure is 31.7 mmHg. PULMONARY VALVE The pulmonary valve is not well visualized. VESSELS The inferior vena cava is normal in size. PERICARDIUM No pericardial effusion. Adan Zuluaga MD (Electronically Signed) Final Date:26 November 2017 12:56
--- NOTE | 2017-11-26 14:31 | P.PN ---
Subjective Interval history: Follow-up for atrial fibrillation/flutter with RVR. Patient reports feeling much better today. He denies any chest pain, palpitations, or shortness of breath. His heart rate has been well controlled in the 60s. He wants to go home. Case management has assisted with filling digoxin prescription, and given a voucher for Xarelto. Thoroughly discussed importance of compliance with medications, patient verbalized understanding. Discussed with Dr. Pete, cleared for discharge. Physical Exam Vital signs: Vital Signs 11/25/17 14:44 11/25/17 17:30 11/25/17 18:46 Temperature Pulse Rate 104 H 82 99 H Respiratory Rate 18 20 18 Blood Pressure 91/65 L 112/59 L 119/64 Pulse Oximetry 96 99 97 11/25/17 19:12 11/25/17 20:00 11/25/17 22:37 Temperature 98.6 F Pulse Rate 72 99 H Respiratory Rate 18 16 Blood Pressure 111/75 99/65 L Pulse Oximetry 100 94 L 95 11/26/17 00:00 11/26/17 04:00 11/26/17 04:13 Temperature 98.3 F 98.4 F Pulse Rate 76 72 61 Respiratory Rate 16 16 Blood Pressure 99/58 L 98/54 L Pulse Oximetry 94 L 93 L 11/26/17 07:11 11/26/17 08:27 11/26/17 11:40 Temperature 98.1 F Pulse Rate 51 L 62 Respiratory Rate 16 Blood Pressure 112/62 Pulse Oximetry 97 98 11/26/17 12:00 Temperature 97.5 F L Pulse Rate 54 L Respiratory Rate 16 Blood Pressure 124/65 Pulse Oximetry 100 Intake & Output 11/25/17 11/26/17 11/26/17 18:59 06:59 18:59 Intake Total 1999 1240 / 1240 Output Total 560 / 560 Balance 1440 / 1440 1240 / 1240 Weight 83.915 kg Intake: IV 1999 1000 / 1000 NS Inj 1,000 ML @ 100 mls/hr IV 1000 / 1000 .CONT .Q10H RAUL Rx#:[id number] NS Inj 1,000 ML @ Wide Open IV. 1999 SIG BOLUS RAUL Rx#:[id number] Oral 240 / 240 Output: Urine 560 / 560 Other: # Voids 1 Date of Last Bowel Movement 11/24/17 Narrative: GENERAL: Well-nourished, well-developed pleasant middle-age male patient in [facility]. SKIN: Warm and dry. No rash. HEENT: Normocephalic. Atraumatic. CARDIOVASCULAR: Regular rate and rhythm. No murmur appreciated. RESPIRATORY: No accessory muscle use. Clear to auscultation. Breath sounds equal bilaterally. GASTROINTESTINAL: Abdomen soft, non-tender, nondistended. Normoactive bowel sounds x4. MUSCULOSKELETAL: No obvious deformities. Extremities without clubbing, cyanosis , or edema. NEUROLOGICAL: Awake and alert. No obvious cranial nerve deficits. Motor grossly within normal limits. Moving all extremities spontaneously. Normal speech. PSYCHIATRIC: Appropriate mood and affect; insight and judgment normal. Results - Labs CBC & Chem 7: 11/26/17 07:00 11/26/17 07:00 Laboratory Results - last 24 hr 11/25/17 11/25/17 11/25/17 14:20 14:20 14:20 WBC 10.3 RBC 4.21 L Hgb 14.1 Hct 40.6 MCV 96.4 MCH 33.5 MCHC 34.7 RDW 13.3 Plt Count 225 MPV 8.6 Neut % (Auto) 79.7 H Lymph % (Auto) 12.3 D[place]y % (Auto) 7.2 Eos % (Auto) 0.4 Baso % (Auto) 0.4 Neut # (Auto) 8.2 H Lymph # (Auto) 1.3 [place]y # (Auto) 0.7 Eos # (Auto) 0.0 Baso # (Auto) 0.0 WBC Differential . Differential Comment Auto diff final PT 10.4 INR 1.0 APTT 23.3 L Sodium 136 Potassium 4.4 Chloride 103 Carbon Dioxide 23.6 Anion Gap 9 BUN 23 H Creatinine 1.82 H Estimated GFR 38 L Random Glucose 192 H Calcium 8.0 L Magnesium 2.5 Total Bilirubin 1.4 H AST 18 ALT 20 Alkaline Phosphatase 63 Total Creatine Kinase 168 CK-MB (CK-2) 1.6 Troponin I Less than 0.02 L Total Protein 7.5 Albumin 3.9 11/26/17 11/26/17 07:00 07:00 WBC 6.6 RBC 4.02 L Hgb 13.3 Hct 39.4 MCV 98.1 MCH 33.0 MCHC 33.7 RDW 13.5 Plt Count 199 MPV 8.7 Neut % (Auto) 57.2 Lymph % (Auto) 31.1 D[place]y % (Auto) 9.3 H Eos % (Auto) 1.8 Baso % (Auto) 0.6 Neut # (Auto) 3.8 Lymph # (Auto) 2.0 D[place]y # (Auto) 0.6 Eos # (Auto) 0.1 Baso # (Auto) 0.0 WBC Differential . Differential Comment Auto diff final PT INR APTT Sodium 141 Potassium 3.9 Chloride 107 Carbon Dioxide 25.5 Anion Gap 9 BUN 17 Creatinine 1.09 Estimated GFR 69 L Random Glucose 100 Calcium 8.1 L Magnesium Total Bilirubin 0.6 AST 14 L ALT 18 Alkaline Phosphatase 51 Total Creatine Kinase CK-MB (CK-2) Troponin I Less than 0.02 L Total Protein 6.7 D Albumin 3.3 L D - Imaging Impressions Chest CTA 11/25/17 13:59 CONCLUSION: 1. No evidence for pulmonary embolism. Chest X-Ray 11/25/17 14:00 CONCLUSION: 1. Slightly more pronounced left lung base nodular opacity in comparison to prior exam. This nodule may be calcified. This will be further evaluated on already requested PE CT exam. Assessment and Plan - Assessment (1) Atrial flutter with rapid ventricular response Code(s): I48.92 - Unspecified atrial flutter Status: Acute (2) Atrial fibrillation with RVR Code(s): I48.91 - Unspecified atrial fibrillation Status: Acute - Plan 57-year-old male with history of atrial fibrillation/flutter, TBI, presents with acute onset of dizziness and shortness of breath while working outside in the heat, found to be in atrial flutter with RVR upon arrival to ER. Atrial flutter with RVR: Heart rate 137 upon arrival, EKG showing atrial flutter with RVR. -[facility] did not have Cardizem available, therefore he was given 150 mg of amiodarone and heart rate became controlled while in the ER -Monitor on telemetry -CT-PA reviewed and negative for PE -Cardiology consulted, discussed with Dr. Pete, recommended echocardiogram and digoxin 125 mcg daily -EMR reviewed, previous Echo 09/17/16 with EF 30-35%, Repeat Echocardiogram today improved with EF 45% -Cardiology started on Xarelto for anticoagulation -Cleared for discharge by cardiology, discussed with Dr. Pete -Case management assisted with discharge planning, filled prescription for Digoxin prior to discharge, and given voucher for Xarelto -Thoroughly discussed importance of adherence to treatment plan with the patient who verbalized understanding -Stable for discharge Nonischemic Cardiomyopathy: EMR reviewed, previous echo with EF 30-35%. No hx of CAD. -Repeat echocardiogram improved with EF 40-45% -BP 88/57 upon arrival and has been low throughout admission, unable to start VANESA/BB at this time -No signs of fluid overload -Outpatient f/up DILMA: Cr 1.8 upon arrival, suspect secondary to dehydration, patient recently working outside in the [address] [place] [address] heat. -given IVF hydration -avoid nephrotoxins -repeat BMP improved with Cr 1.09 DVT Prophylaxis: Xarelto Discharge Planning: Cleared for discharge by cardiology. Discharge patient to home Condition on discharge: Stable Heart Healthy Diet as tolerated Ad Dolly activity Rx written: digoxin 125mcg daily, xarelto 20mg daily Follow-up with primary care physician and cardiology
--- NOTE | 2017-11-26 19:59 | ECG ---
Date Performed: 11/25/2017 Time Performed: 14:21:13 PTAGE: 57 years EKG: ATRIAL FLUTTER/TACHYCARDIA WITH RAPID VENTRICULAR RESPONSE MARKED LEFT AXIS DEVIATION POSSI BLE RIGHT VENTRICULAR CONDUCTION DELAY SEPTAL MYOCARDIAL INFARCTION Since previous tracing, no signif icant change noted ABNORMAL ECG PREVIOUS TRACING : 09/16/2016 12.19 DOCTOR: Silvio Parra Interpretating Date/Time 11/26/2017 19:57:25
== END 2017-11-26 15:55 | disposition home or self-care (01) ==
LOC: NEPC 13:43 → NEDA 13:43 → NEPHCDU 19:52
PROVIDERS: ADMIT Hospitalist; ATTEND Hospitalist